=== PATIENT | female | born 1945 | race Caucasian/White ===

== ENCOUNTER 2018-03-24 09:44 | Observation (INO) | payer MEDICARE ==
[2018-03-24] VITALS (10 sets, daily range): BP systolic 112–175; BP diastolic 66–87; PULSE 62–85; RESP 18–20; TEMP 96.2–98.3; O2SAT 91–99
[~2018-03-24] VITALS: Ht 162.6 cm; Wt 87.5 kg
[~2018-03-24 09:44] MED LIST: ASPI81 PO; ATOR10TA PO; BUPR150T5 PO; ISOS30 PO; MELA5 PO; METO25 PO; NAPR220T95 PO; NITR0.4S SL; PLAV75TA29 PO; TIZA2TAB PO; ZEGE20CA4 PO; [UNRECOGNIZED DRUG - OTHER]
--- NOTE | 2018-03-24 09:53 | PD ---
HPI Chief Complaint: Chest Pain Time Seen by Provider: 09:53 Travel History International Travel<30 days: No Contact w/Intl Traveler<30days: No Traveled to known affect area: No History of Present Illness HPI 72-year-old female came to the emergency room brought by EMS for sudden onset chest pain about half an hour prior to arrival. Patient has history of coronary artery disease and has stent. Her last stent was year and a half ago. Patient had her own nitro and took the nitro 2 every 5 minutes and at that point her pain started to ease. Initially the pain was 10 out of 10 and currently is 4 out of 10. This is a dull pain that she said started in the substernal area and then radiated all over the chest and to her left shoulder. She started feeling dizzy but did not have a syncopal episode. Vital signs were stable upon arrival. Currently patient is awake and answering questions appropriately. She is taking her Plavix every day. Patient continues to be a smoker. Patient was concerned that she was having another heart attack. [facility] Past Medical History Narrative Medical List of her past medical, surgical, social and family history is reviewed from the nursing note Cancer: Yes Cardiovascular Problems: No Chest Pain: Yes Diabetes: Yes Endocrine: No Gastrointestinal Disorders: Yes (Colitis+) Glaucoma: No Genitourinary: No Hepatitis: No Hiatal Hernia: No Hypertension: Yes Immune Disorder: No Musculoskeletal: Yes Neurologic: No (Brain Hemorrhage) Reproductive: Yes (Cancer) Respiratory: No Integumentary: No Thyroid Disease: No ?: Not Past Surgical History Gynecologic Surgery: Yes (Hysterectomy, ovary removal) Thoracic Surgery: Yes Social History Alcohol Use: Yes (OCC) Tobacco Use: Yes (1PPD) Substance Use: No Allergies-Medications (Allergen,Severity, Reaction): Coded Allergies: No Known Allergies (Unverified Allergy, Unknown, 03/24/18) Comments No known drug allergies. Reported Meds & Prescriptions Reported Meds & Active Scripts Active Tizanidine (Tizanidine HCl) 2 Mg Tab 2 Mg PO TID Reported Isosorbide Mononitrate ER (Isosorbide Mononitrate) 60 Mg Tab 60 Mg PO DAILY Metoprolol Tartrate 25 Mg Tab 25 Mg PO BID Nitrostat SL (Nitroglycerin) 0.4 Mg Subl 0.4 Mg SL DIRECTED PRN 1 tablet under the tongue as needed for chest pain. Repeat every 5 minutes for a total of 3 DOSES or call 911 if NO relief. Atorvastatin (Atorvastatin Calcium) 10 Mg Tab 10 Mg PO DAILY Aspirin Low Dose (Aspirin) 81 Mg Chew 81 Mg CHEW DAILY Zegerid (Omeprazole-Sodium Bicarbonate) 20-1,100 Mg Cap 1 Cap PO DAILY Plavix (Clopidogrel Bisulfate) 75 Mg Tab 75 Mg PO DAILY Narrative Medication List of her home medications reviewed from the nursing note. Review of Systems Except as stated in HPI: all other systems reviewed are Neg Cardiovascular: Positive: Chest Pain or Discomfort Physical Exam Narrative GENERAL: Awake, alert, anxious, moderate distress SKIN: Focused skin assessment warm/dry. HEAD: Atraumatic. Normocephalic. EYES: Pupils equal and round. No scleral icterus. No injection or drainage. ENT: No nasal bleeding or discharge. Mucous membranes pink and moist. NECK: Trachea midline. No JVD. CARDIOVASCULAR: Regular rate and rhythm. No murmur appreciated. RESPIRATORY: No accessory muscle use. Clear to auscultation. Breath sounds equal bilaterally. GASTROINTESTINAL: Abdomen soft, non-tender, nondistended. Hepatic and splenic margins not palpable. MUSCULOSKELETAL: No obvious deformities. No clubbing. No cyanosis. No edema. NEUROLOGICAL: Awake and alert. No obvious cranial nerve deficits. Motor grossly within normal limits. Normal speech. PSYCHIATRIC: Appropriate mood and affect; insight and judgment normal. Data Data Last Documented VS Vital Signs Date Time Temp Pulse Resp B/P (MAP) Pulse Ox O2 Delivery O2 Flow Rate FiO2 03/24/18 10:43 68 18 112/68 (83) 96 Nasal Cannula 2.00 03/24/18 09:48 98.3 Orders Orders Electrocardiogram (03/24/18 09:59) Basic Metabolic Panel (Bmp) (03/24/18 09:59) Ckmb (Isoenzyme) Profile (03/24/18 09:59) Complete Blood Count With Diff (03/24/18 09:59) Magnesium (Mg) (03/24/18 09:59) Prothrombin Time / Inr (Pt) (03/24/18 09:59) Act Partial Throm Time (Ptt) (03/24/18 09:59) Troponin I (03/24/18 09:59) Ecg Monitoring (03/24/18 09:59) Bilateral Bp Monitoring (03/24/18 09:59) Iv Access Insert/Monitor (03/24/18 09:59) Oximetry (03/24/18 09:59) Oxygen Administration (03/24/18 09:59) Sodium Chloride 0.9% Flush (Ns Flush) (03/24/18 10:00) Chest, Pa & Lat (03/24/18 09:59) Nitroglycerin 2% Oint (Nitroglycerin 2% (03/24/18 10:00) Admit Order (Ed Use Only) (03/24/18 11:35) Labs Laboratory Tests Test 03/24/18 09:58 White Blood Count 6.6 TH/MM3 Red Blood Count 4.75 MIL/MM3 Hemoglobin 14.7 GM/DL Hematocrit 43.6 % Mean Corpuscular Volume 91.8 FL Mean Corpuscular Hemoglobin 30.9 PG Mean Corpuscular Hemoglobin Concent 33.6 % Red Cell Distribution Width 13.5 % Platelet Count 257 TH/MM3 Mean Platelet Volume 8.9 FL Neutrophils (%) (Auto) 60.1 % Lymphocytes (%) (Auto) 28.3 % Monocytes (%) (Auto) 8.3 % Eosinophils (%) (Auto) 1.7 % Basophils (%) (Auto) 1.6 % Neutrophils # (Auto) 4.0 TH/MM3 Lymphocytes # (Auto) 1.9 TH/MM3 Monocytes # (Auto) 0.5 TH/MM3 Eosinophils # (Auto) 0.1 TH/MM3 Basophils # (Auto) 0.1 TH/MM3 CBC Comment DIFF FINAL Differential Comment Prothrombin Time 10.1 SEC Prothromb Time International Ratio 1.0 RATIO Activated Partial Thromboplast Time 28.4 SEC Blood Urea Nitrogen 19 MG/DL Creatinine 0.88 MG/DL Random Glucose 115 MG/DL Calcium Level 8.9 MG/DL Magnesium Level 2.3 MG/DL Sodium Level 142 MEQ/L Potassium Level 3.8 MEQ/L Chloride Level 108 MEQ/L Carbon Dioxide Level 24.3 MEQ/L Anion Gap 10 MEQ/L Estimat Glomerular Filtration Rate 63 ML/MIN Total Creatine Kinase 55 U/L Troponin I LESS THAN 0.02 NG/ML Exceptions Acute Myocardial Infarction ASA Not Given on Arrival: Already Given by EMS MDM Medical Decision Making Medical Screen Exam Complete: Yes Emergency Medical Condition: Yes Medical Record Reviewed: Yes Interpretation(s) Twelve-lead EKG was reviewed by me. Normal sinus rhythm, normal axis, nonspecific ST-T wave changes. Heart rate of 85 bpm. Differential Diagnosis ACS, non-STEMI, nonspecific chest pain Narrative Course 11:23 AM blood test results are back and within normal limits. I would like to admit this patient for chest pain, rule out ACS given her significant past coronary artery disease history. Patient was put on 2 inch Nitropaste. Awaiting for the hospitalist to call back Procedures EKG Prior to Arrival: No Diagnosis Primary Impression: Chest pain Qualified Codes: R07.9 - Chest pain, unspecified Admitting Information Admitting Physician Requests: Observation Xavier Poon MD Mar 24, 2018 09:53
[2018-03-24] MEDS ORDERED: NITR0.4S SL (09:54)
[2018-03-24] MEDS ORDERED: ASPI81CH6 CHEW (09:54)
[2018-03-24] MEDS ORDERED: ATOR10TA15 PO (09:54)
[2018-03-24] MEDS ORDERED: NITROGLYCERIN 2% OINT 1 GM PACKET TOPICAL ONE (10:00)
[2018-03-24] MEDS ORDERED: SODIUM CHLORIDE 0.9% FLUSH 10 ML FLUSH IVF PRN (10:00)
[2018-03-24] MEDS ORDERED: METO25TA3 PO (10:02)
[2018-03-24] MEDS ORDERED: ISOS60TA PO (10:02)
[2018-03-24 10:27] LABS: BASOPHIL # 0.1 TH/MM3 (0-0.2); BASOPHIL % 1.6 % (0.0-2.0); EOSINOPHIL # 0.1 TH/MM3 (0-0.4); EOSINOPHIL % 1.7 % (0.0-4.0); HEMATOCRIT 43.6 % (35.0-46.0); HEMOGLOBIN 14.7 GM/DL (11.6-15.3); LYMPH % 28.3 % (9.0-44.0); LYMPHOCYTE # 1.9 TH/MM3 (1.0-4.8); MEAN CELL VOLUME 91.8 FL (80.0-100.0); MEAN CORPUSCULAR HEMOGLOBIN 30.9 PG (27.0-34.0); MEAN CORPUSCULAR HGB CONC 33.6 % (32.0-36.0); MEAN PLATELET VOLUME 8.9 FL (7.0-11.0); MONO % 8.3 % (0.0-8.0); MONOCYTE # 0.5 TH/MM3 (0-0.9); NEUT % 60.1 % (16.0-70.0); PLATELET COUNT 257 TH/MM3 (150-450); RED BLOOD COUNT 4.75 MIL/MM3 (4.00-5.30); RED CELL DISTRIBUTION WIDTH 13.5 % (11.6-17.2); WHITE BLOOD COUNT 6.6 TH/MM3 (4.0-11.0)
[2018-03-24 10:34] LABS: CHLORIDE 108 MEQ/L (98-107); SODIUM (NA) 142 MEQ/L (136-145)
[2018-03-24 10:37] LABS: CALCIUM 8.9 MG/DL (8.5-10.1)
[2018-03-24 10:38] LABS: BICARBONATE 24.3 MEQ/L (21.0-32.0); BLOOD UREA NITROGEN 19 MG/DL (7-18); GLUCOSE,RANDOM 115 MG/DL (74-106); MAGNESIUM 2.3 MG/DL (1.5-2.5)
[2018-03-24 10:39] LABS: PROTHROMBIN TIME - PATIENT 10.1 SEC (9.8-11.6)
[2018-03-24 10:41] LABS: CREATININE 0.88 MG/DL (0.50-1.00); GLOMERULAR FILTRATION RATE 63 ML/MIN (>89)
[2018-03-24 10:46] LABS: TROPONIN I LESS THAN 0.02 NG/ML (0.02-0.05)
--- NOTE | 2018-03-24 11:27 | RADRPT ---
EXAM DATE: 03/24/2018 11:18 AM EDT AGE/SEX: 72 years / Female INDICATIONS: Chest pain CLINICAL DATA: This is the patient's initial encounter. Patient reports that signs and symptoms have been present for 1 day and indicates a pain score of 9/10. MEDICAL/SURGICAL HISTORY: . Heart attack . Cardiac stent COMPARISON: [facility] [place], CHEST SINGLE AP, 02/10/2016. . FINDINGS: Frontal and lateral views of the chest demonstrate a normal-sized cardiac silhouette. No pleural effu lalit, airspace consolidation, or pneumothorax is identified. There is likely a mild degree of atelect asis at the lung bases. There is biapical pleural parenchymal scar, stable from the prior study. The bones and soft tissues demonstrate no acute abnormality. CONCLUSION: No acute cardiopulmonary abnormality is identified. Electronically signed by: Vikram Rudolph MD 03/24/2018 11:26 AM EDT
[2018-03-24] MEDS ORDERED: SODIUM CHLORIDE 0.9% FLUSH 10 ML FLUSH IV FLUSH PRN (11:45)
[2018-03-24] MEDS: NITROGLYCERIN 2% OINT 1 GM PACKET TOP SCH ×2 (11:59→17:53)
--- NOTE | 2018-03-24 12:08 | HHI.HP ---
[facility] Primary [facility] Physician Unknown Admission Diagnosis Chest pain, rule out ACS Diagnoses: Chief Complaint: Chest pain Travel History International Travel<30 Days: No Contact w/Intl Traveler <30 Da: No Traveled to Known Affected Are: No History of Present Illness This patient is a 72-year-old female with a history of coronary disease. She appears quite younger than stated age and is otherwise very healthy despite her year tobacco history. She comes emergency room with 1 day severe chest pain, crushing and radiating to the left shoulder. Occurred at rest and relieved with nitroglycerin. She describes it as "an explosion in her chest ". There is no nausea or vomiting or diaphoresis. She did not have any palpitations or lightheadedness. Her cardiac enzymes and imaging have been unremarkable EKG is sinus rhythm. At this point patient is admitted to the chest pain center for further evaluation. I did discuss this briefly with her road builder who agreed with the current plan of action. Patient is currently without complaint. Review of Systems Constitutional: DENIES: Diaphoretic episodes, Fatigue, Fever, Weight gain, Weight loss, Chills, Dizziness, Change in appetite, Night Sweats Endocrine: DENIES: Abnorml menstrual pattern, Heat/cold intolerance, Polydipsia , Polyuria, Polyphagia Eyes: DENIES: Blurred vision, Diplopia, Eye inflammation, Eye pain, Vision loss , Photosensitivity, Double Vision Ears, nose, mouth, throat: DENIES: Tinnitus, Hearing loss, Vertigo, Nasal discharge, Oral lesions, Throat pain, Hoarseness, Ear Pain, Running Nose, Epistaxis, Sinus Pain, Toothache, Odynophagia Respiratory: DENIES: Apneas, Cough, Snoring, Wheezing, Hemoptysis, Sputum production, Shortness of breath Cardiovascular: COMPLAINS OF: Chest pain, DENIES: Palpitations, Syncope, Dyspnea on Exertion, PND, Lower Extremity Edema, Orthopnea, Claudication Gastrointestinal: DENIES: Abdominal pain, Black stools, Bloody stools, Constipation, Diarrhea, Nausea, Vomiting, Difficulty Swallowing, Anorexia Genitourinary: DENIES: Abnormal vaginal bleeding, Dysmenorrhea, Dyspareunia, Sexual dysfunction, Urinary frequency, Urinary incontinence, Urgency, Hematuria , Dysuria, Nocturia, Vaginal discharge Musculoskeletal: DENIES: Joint pain, Muscle aches, Stiffness, Joint Swelling, Back pain, Neck pain Integumentary: DENIES: Abnormal pigmentation, Pruritus, Rash, Nail changes, Breast masses, Breast skin changes, Nipple discharge Hematologic/lymphatic: DENIES: Bruising, Lymphadenopathy Immunologic/allergic: DENIES: Eczema, Urticaria Neurologic: DENIES: Abnormal gait, Headache, Localized weakness, Paresthesias, Seizures, Speech Problems, Tremor, Poor Balance Psychiatric: DENIES: Anxiety, Confusion, Mood changes, Depression, Hallucinations, Agitation, Suicidal Ideation, Homicidal Ideation, Delusions Except as stated in HPI: all other systems reviewed are Neg Past Family Social History Past Medical History Coronary artery disease with stenting Eye surgery Past Surgical History Eye surgery Hysterectomy Cardiac cath 09/2018 per patient, (last catheterization in our records 2014) Tonsillectomy Dental extraction Reported Medications Reviewed in the EMR, nothing new Allergies: Coded Allergies: No Known Allergies (Unverified Allergy, Unknown, 03/24/18) Active Ordered Medications Reviewed in the EMR Family History Mother at 93 with dementia, father of sudden cardiac in his 50s Social History No alcohol dependency Patient smokes a half pack a day at least and has 100 pack year history Physical Exam Vital Signs Vital Signs Date Time Temp Pulse Resp B/P (MAP) Pulse Ox O2 Delivery O2 Flow Rate FiO2 03/24/18 10:43 68 18 112/68 (83) 96 Nasal Cannula 2.00 03/24/18 10:06 96 Nasal Cannula 2.00 03/24/18 10:05 73 18 134/75 (94) 96 2.00 03/24/18 10:00 91 Room Air 03/24/18 09:56 78 03/24/18 09:48 98.3 85 18 150/87 (108) 97 Physical Exam GENERAL: This is a well-nourished, well-developed patient, in no apparent distress. SKIN: No rashes, ecchymoses or lesions. Cool and dry. HEAD: Atraumatic. Normocephalic. No temporal or scalp tenderness. EYES: Pupils equal round and reactive. Extraocular motions intact. No scleral icterus. No injection or drainage. ENT: Nose without bleeding, purulent drainage or septal hematoma. Throat without erythema, tonsillar hypertrophy or exudate. Uvula midline. Airway patent. NECK: Trachea midline. No JVD or lymphadenopathy. Supple, nontender, no meningeal signs. CARDIOVASCULAR: Regular rate and rhythm without murmurs, gallops, or rubs. RESPIRATORY: Clear to auscultation. Breath sounds equal bilaterally. No wheezes , rales, or rhonchi. GASTROINTESTINAL: Abdomen soft, non-tender, nondistended. No hepato-splenomegaly , or palpable masses. No guarding. MUSCULOSKELETAL: Extremities without clubbing, cyanosis, or edema. No joint tenderness, effusion, or edema noted. No calf tenderness. Negative Homans sign bilaterally. NEUROLOGICAL: Awake and alert. Cranial nerves II through XII intact. Motor and sensory grossly within normal limits. Five out of 5 muscle strength in all muscle groups. Normal speech. Laboratory Laboratory Tests Test 03/24/18 09:58 White Blood Count 6.6 Red Blood Count 4.75 Hemoglobin 14.7 Hematocrit 43.6 Mean Corpuscular Volume 91.8 Mean Corpuscular Hemoglobin 30.9 Mean Corpuscular Hemoglobin Concent 33.6 Red Cell Distribution Width 13.5 Platelet Count 257 Mean Platelet Volume 8.9 Neutrophils (%) (Auto) 60.1 Lymphocytes (%) (Auto) 28.3 Monocytes (%) (Auto) 8.3 Eosinophils (%) (Auto) 1.7 Basophils (%) (Auto) 1.6 Neutrophils # (Auto) 4.0 Lymphocytes # (Auto) 1.9 Monocytes # (Auto) 0.5 Eosinophils # (Auto) 0.1 Basophils # (Auto) 0.1 CBC Comment DIFF FINAL Differential Comment Prothrombin Time 10.1 Prothromb Time International Ratio 1.0 Activated Partial Thromboplast Time 28.4 Blood Urea Nitrogen 19 Creatinine 0.88 Random Glucose 115 Calcium Level 8.9 Magnesium Level 2.3 Sodium Level 142 Potassium Level 3.8 Chloride Level 108 Carbon Dioxide Level 24.3 Anion Gap 10 Estimat Glomerular Filtration Rate 63 Total Creatine Kinase 55 Troponin I LESS THAN 0.02 Result Diagram: 03/24/1858 03/24/18 0958 Assessment and Plan Problem List: (1) Chest pain ICD Code: R07.9 - Chest pain, unspecified Plan: Worrisome to the patient's known coronary disease Discussed with cardiology Dr. minor Continue telemetry Follow-up cardiac enzymes, stress test pending Morphine, oxygen, nitro, aspirin Discussed with ER MD and PULLEY MORTISER OPERATOR (2) Hypertension ICD Code: I10 - Essential (primary) hypertension Status: Acute Plan: Currently controlled Kiara Vega MD Mar 24, 2018 12:08
[2018-03-24] MEDS ORDERED: MORPHINE SULFATE 4 MG/ML INJ IV PUSH PRN (12:15)
[2018-03-24 15:45] LABS: TROPONIN I LESS THAN 0.02 NG/ML (0.02-0.05)
[2018-03-24 16:36] LABS: TROPONIN I LESS THAN 0.02 NG/ML (0.02-0.05)
[2018-03-24] MEDS ORDERED: REGADENOSON INJ 0.4 MG/5 ML SYR IV ONE (17:36)
--- NOTE | 2018-03-24 18:55 | RADRPT ---
EXAM DATE: 03/24/2018 6:51 PM EDT AGE/SEX: 72 years / Female INDICATIONS:Angina. . Chest pain. CLINICAL DATA: This is the patient's initial encounter. Patient reports that signs and symptoms have been present for 1 day and indicates a pain score of 0/10. MEDICAL/SURGICAL HISTORY: Cardiovascular disease. Hypertension. Hysterectomy. Angioplasty. COMPARISON: No prior exams available for comparison. DOSE: 8.5 mCi Tc 99m Myoview at rest 27.3 mCi [id number] at stress 0.4 mg Lexiscan STRESS SYMPTOMS: Headache, dyspnea, and chest pain. EJECTION FRACTION: 60 % TECHNIQUE: The patient underwent pharmacologic stress with infusion of prescribed dose. Continuous ECG tracing was monitored during stress. Gated SPECT imaging was performed after stress and conventi onal SPECT imaging was performed at rest. The examination was performed on a SPECT/CT scanner, both attenuation and non-corrected datasets were reviewed. FINDINGS: Distribution: The maximum perfused segment at stress is in the anterior wall. Perfusion Study: The pattern of perfusion at stress is within normal limits with regional variation s perfusion within 25%. The pattern of perfusion at stress and rest is unchanged and there is no evid ence of redistribution.. Gated Study: There are intact wall motion and wall thickening without hypokinetic or dyskinetic segm ents. The ejection fraction is calculated at 60%. RISK CATEGORY: Low (<1% Annual Motality Rate) CONCLUSION: 1. No evidence of stress-induced ischemia. 2. Intact wall motion with 60% ejection fraction. Electronically signed by: Rakesh Rick MD 03/24/2018 6:53 PM EDT
--- NOTE | 2018-03-24 19:03 | HHI.DCPOC ---
Discharge Care Plan Diagnosis: (1) Chest pain Goals to Promote Your Health * To prevent worsening of your condition and complications * To maintain your health at the optimal level Directions to Meet Your Goals Take your medications as prescribed Follow your dietary instruction Follow activity as directed Keep your appointments as scheduled Take your immunizations and boosters as scheduled If your symptoms worsen call your PCP, if no PCP go to Urgent Care Center or Emergency Room Smoking is Dangerous to Your Health. Avoid second hand smoke Call the 24-hour hour crisis hotline for domestic abuse at Kiara Vega MD Mar 24, 2018 19:03
[2018-03-24] MEDS ORDERED: SODIUM CHLORIDE 0.9% FLUSH 10 ML FLUSH IV FLUSH SCH (21:00)
--- NOTE | 2018-03-25 15:38 | TR ---
Date Performed: 03/24/2018 Time Performed: 18:03:17 DOCTOR: Ajit Wellington DRUG LIST: CLINICAL HISTORY: REASON FOR TEST: REASON FOR ENDING: OBSERVATION: CONCLUSION: COMMENTS: Lexiscan stress test was performed under standard four minute protocol. Radionuclide was injected one minute prior to ending the test. No electrocardiographic abormalities were present t o suggest ischemia. Nuclear imaging and interpretation are pending.
--- NOTE | 2018-03-25 23:11 | EKG ---
Date Performed: 03/24/2018 Time Performed: 15:30:01 PTAGE: 72 years EKG: Sinus rhythm NORMAL ECG PREVIOUS TRACING : 03/24/2018 14.09 DOCTOR: Rosahn Deng Interpretating Date/Time 03/25/2018 23:00:26
--- NOTE | 2018-03-25 23:13 | EKG ---
Date Performed: 03/24/2018 Time Performed: 14:09:16 PTAGE: 72 years EKG: Sinus rhythm NORMAL ECG PREVIOUS TRACING : 03/24/2018 09.49 DOCTOR: Roshan Deng Interpretating Date/Time 03/25/2018 23:01:34
--- NOTE | 2018-03-25 23:20 | EKG ---
Date Performed: 03/24/2018 Time Performed: 09:49:05 PTAGE: 72 years EKG: Sinus rhythm NORMAL ECG PREVIOUS TRACING : 03/01/2016 05.30 DOCTOR: Roshan Deng Interpretating Date/Time 03/25/2018 23:06:08
[2018-03-26] MEDS ORDERED: ASPIRIN 325 MG TAB PO SCH (09:00)
== END 2018-03-24 19:56 | disposition home or self-care (01) ==
LOC: PHED 09:44 → PHEDA 11:36 → PH3B 12:33
PROVIDERS: ADMIT Hospitalist; ATTEND Hospitalist
DX: R07.9 Chest pain, unspecified (principal); I25.10 Atherosclerotic heart disease of native coronary artery without angina pectoris; R42 Dizziness and giddiness; E11.9 Type 2 diabetes mellitus without complications; I10 Essential (primary) hypertension; F17.210 Nicotine dependence, cigarettes, uncomplicated; Z95.5 Presence of coronary angioplasty implant and graft; Z90.710 Acquired absence of both cervix and uterus
CPT/HCPCS: 71046; 78452; 80048; 82550; 83735; 84484; 85025; 85610; 85730; 93005; 93017; 99285; A9502; G0378; J2785

== ENCOUNTER 2018-09-18 13:53 | Inpatient (IN) ==
[2018-09-18] MEDS ORDERED: Sod Chloride 0.9% Inj 1,000 ML IV.SIG ONE (14:56)
[2018-09-18] MEDS ORDERED: Morphine Inj 4 MG/ML Vial IV.PUSH ONE (14:56)
[2018-09-18] MEDS ORDERED: Piperacil/Tazo 3.375 GM Premix 50 ML IV.SIG ONE (14:56)
[2018-09-18 15:13] LABS: Baso # (Auto) 0.1 th/mm3 (0.0-0.2); Baso % (Auto) 0.8 % (0.0-2.0); Eos # (Auto) 0.1 th/mm3 (0.0-0.4); Eos % (Auto) 1.9 % (0.0-4.0); Hematocrit 41.8 % (35.0-46.0); Hemoglobin 14.2 gm/dL (11.6-15.3); Lymph # (Auto) 1.9 th/mm3 (1.0-4.8); Lymph % (Auto) 23.7 % (9.0-44.0); Mean Corpuscular Hemoglobin 31.4 pg (27.0-34.0); Mean Corpuscular Volume 92.4 fL (80.0-100.0); Mean Platelet Volume 8.4 fL (7.0-11.0); Mono # (Auto) 0.6 th/mm3 (0.0-0.9); Mono % (Auto) 7.8 % (0.0-8.0); Neut # (Auto) 5.2 th/mm3 (1.8-7.7); Neut % (Auto) 65.8 % (16.0-70.0); Platelet Count 278 th/mm3 (150-450); Red Blood Count 4.52 mil/mm3 (4.00-5.30); Red Cell Distribution Width 14.7 % (11.6-17.2); White Blood Count 7.8 th/mm3 (4.0-11.0)
--- NOTE | 2018-09-18 15:13 | ED ---
HPI General Chief Complaint: Abdominal Pain Stated Complaint: sent by doctor/medical Time Seen by Provider: 09/18/18 14:46 Source: patient and family Mode of arrival: ambulatory Limitations: no limitations History of Present Illness HPI narrative: Ms Spicer is a 72 year old female who presents to the ED for evaluation of abdominal pain and a CT that showed findings consistent with cholecystitis. The patient saw a provider at [facility] yesterday who was suspicious of cholecystitis and they did blood work and sent her for a CT scan. The patient states she has had abdominal pain in the RUQ for approximately 1 week that is constant but waxes and wanes in intensity. The pain is a 5/10 today but has been a 10/10 in the las few days. She states she feels bloated and nauseous but denies chest pain, vomiting, SOB, jaundice, or syncope. Her last meal was at 1pm today and was a sandwich and a soda. 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 She does take Plavix and she took all her regular medications this morning. The patient smokes 1/2 pack of cigarettes per day, drinks alcohol once per week, and denies drug use. Related Data Home Medications Medication Instructions Recorded Confirmed atorvastatin 10 mg PO DAILY 09/18/18 09/18/18 clopidogrel [Plavix] 75 mg PO DAILY 09/18/18 09/18/18 hydrocodone-acetaminophen 1 tab PO Q6H PRN 09/18/18 09/18/18 isosorbide mononitrate 60 mg PO DAILY 09/18/18 09/18/18 metoprolol tartrate 25 mg PO DAILY 09/18/18 09/18/18 omeprazole-sodium bicarbonate 1 cap PO DAILY 09/18/18 09/18/18 [Zegerid OTC] ropinirole 1 mg PO TID 09/18/18 09/18/18 Allergies Allergy/AdvReac Type Severity Reaction Status Date / Time No Known Allergies Allergy Verified 09/18/18 14:31 Review of Systems ROS: all other systems reviewed are negative [facility] Medical History Medical History Cataract (Acute) H/O: hysterectomy (Acute) HTN (hypertension) (Acute) Ovarian tumor (benign) (Acute) Surgical History Surgical History Hx of heart artery stent (Acute) Family History Family History Other Coronary artery disease Social History Social History Substance History: No History of Abuse Second Hand Smoke Exposure: Yes Smoking Status: Current every day smoker Tobacco Type: Cigarettes How Often Do You Have a Drink Containing Alcohol: 2 to 4 times a month Recent Travel in [facility] within the Last 8 Weeks: No Recent Out of Country Travel within the Last 8 Weeks: No Immunization History Tetanus Immunization: Unsure Exam Narrative Exam Narrative: GENERAL: Well developed well nourished female who appears mildly uncomfortable. SKIN: Warm and dry. HEAD: Atraumatic. Normocephalic. EYES: Pupils equal and round and reactive to light. No scleral icterus. No injection or drainage. ENT: No nasal bleeding or discharge. Mild nasal congestion present. Mucous membranes pink and moist. NECK: Trachea midline. No JVD. CARDIOVASCULAR: Regular rate and rhythm. No murmurs rubs or gallops. RESPIRATORY: No accessory muscle use. Clear to auscultation. Breath sounds equal bilaterally. GASTROINTESTINAL: Abdomen soft and nondistended. Pain with palpation of the RUQ. Positive Sanon's sign. Hepatic and splenic margins not palpable. MUSCULOSKELETAL: Extremities without clubbing, cyanosis, or edema. No obvious deformities. Full ROM in the upper and lower extremities bilaterally. 2+ pulses in the upper and lower extremities bilaterally. NEUROLOGICAL: Awake and alert. No obvious cranial nerve deficits. Motor grossly within normal limits. Five out of 5 muscle strength in the arms and legs. Normal speech. PSYCHIATRIC: Appropriate mood and affect; insight and judgment normal. Course Initial Documented Vital Signs Temperature 97.7 F 09/18/18 14:18 Pulse Rate 88 09/18/18 14:18 Respiratory Rate 14 09/18/18 14:18 Blood Pressure 174/79 H 09/18/18 14:18 Pulse Oximetry 97 09/18/18 14:18 Last Documented Vital Signs Temperature 97.6 F 09/18/18 20:00 Pulse Rate 77 09/18/18 20:00 Respiratory Rate 20 09/18/18 20:00 Blood Pressure 161/79 H 09/18/18 20:00 Pulse Oximetry 95 09/18/18 20:00 Medical Decision Making PEBBLES Attestation PEBBLES supervised visit: Yes Attestation: I, Dr. Eng, have reviewed the advance practice practitioner's documentation and am in agreement, met with the patient face to face, made the diagnosis, and the medical decision making was done by me. *My assessment and Findings: Patient is a 72-year-old female who presents with complaint of right upper quadrant abdominal pain. She had a CT done at an outside facility that was concerning for acute cholecystitis. She has been hemodynamically stable in the emergency department and was given Zosyn. Her case was discussed with the surgeon and the admitting physician with whom she will have further evaluation and management. MDM Narrative Medical decision making narrative: 72-year-old female who presents to the ED for evaluation of cholecystitis. Patient was properly examined and was found to have signs and symptoms consistent with this. Was able to get the records from [facility] and she did have CT findings consistent with gallbladder disease including cholecystitis. Case was discussed with my attending who recommends I speak with general surgery. Labs were done. We were able to get the records from the urgent care who sent the blood work and blood work did not show anything acute. At this time patient will be admitted to medicine. Case discussed with Dr. Crockett who states at this time no plans for surgery at least for the next 24 hours as patient did eat at 1:00 and is on Plavix. Liquid diet if patient can tolerate per his recommendation. At this time he recommends starting on. At this time she seems to be hopeful with just medical treatment may patient might not need surgery. He will assess her as she is admitted to the hospital. Case discussed with Dr. Carter who agrees to admission. Patient and family agree with plan. Patient was started on IV antibiotics as well as pain medications by me. Medical Screen Exam Complete: Yes Emergency Medical Condition: Yes Medical Records Medical records reviewed: Yes I reviewed the patient's medical records. Lab Data Lab results reviewed: Yes I reviewed the patient's lab results. Result diagrams: 09/18/18 15:00 09/18/18 15:00 Lab Results 09/18/18 09/18/18 09/18/18 Range/Units 15:00 15:00 15:00 WBC 7.8 (4.0-11.0) th/mm3 RBC 4.52 (4.00-5.30) mil/mm3 Hgb 14.2 (11.6-15.3) gm/dL Hct 41.8 (35.0-46.0) % MCV 92.4 (80.0-100.0) fL MCH 31.4 (27.0-34.0) pg MCHC 34.0 (32.0-36.0) % RDW 14.7 (11.6-17.2) % Plt Count 278 (150-450) th/mm3 MPV 8.4 (7.0-11.0) fL Neut % (Auto) 65.8 (16.0-70.0) % Lymph % (Auto) 23.7 (9.0-44.0) % [place] % (Auto) 7.8 (0.0-8.0) % Eos % (Auto) 1.9 (0.0-4.0) % Baso % (Auto) 0.8 (0.0-2.0) % Neut # (Auto) 5.2 (1.8-7.7) th/mm3 Lymph # (Auto) 1.9 (1.0-4.8) th/mm3 [place] # (Auto) 0.6 (0.0-0.9) th/mm3 Eos # (Auto) 0.1 (0.0-0.4) th/mm3 Baso # (Auto) 0.1 (0.0-0.2) th/mm3 WBC Differential . Differential Comment Auto diff final PT 9.7 L (9.8-11.6) sec INR 1.0 Ratio APTT 31.0 (23.4-31.7) sec Sodium 138 (136-145) meq/L Potassium 3.9 (3.5-5.1) meq/L Chloride 107 (98-107) meq/L Carbon Dioxide 26.0 (21.0-32.0) meq/L Anion Gap 5 (5-15) meq/L BUN 15 (7-18) mg/dL Creatinine 0.92 (0.50-1.00) mg/dL Estimated GFR 60 L (>89) mL/min Random Glucose 106 (74-106) mg/dL Calcium 8.4 L (8.5-10.1) mg/dL Magnesium 2.4 (1.5-2.5) mg/dL Total Bilirubin 0.2 (0.2-1.0) mg/dL AST 22 (15-37) U/L ALT 32 (10-53) U/L Alkaline Phosphatase 104 (45-117) U/L Total Protein 7.1 (6.4-8.2) g/dL Albumin 3.2 L (3.4-5.0) g/dL Lipase 172 (73-393) U/L Imaging Data Attestation: I personally reviewed and interpreted this imaging study as follows : Radiologist's impression: Chest X-Ray 09/18/18 14:56 CONCLUSION: 2.1 cm mass in the right hilar region. Further evaluation with contrast- enhanced chest CT is recommended. Discharge Plan Discharge Disposition Patient Disposition: ED Admit(ED Internal Use Only) Discharge Order Discharge Orders: ED Use Only Admit Order (Routine); Ordered 09/18/18 Ordered By: Rudy Keith Discharge Details Diagnosis: Acute cholecystitis Physicians Team ED Provider: Doris Eng ED Midlevel Provider: Rudy Keith Primary Care Provider: Primary Care Mauricei,Judi Attending Provider: Yves Carter Other Providers: Lc Crockett Status ED Status: Left Department Discharge Information Discharge Date/Time: 09/18/18 19:15
--- NOTE | 2018-09-18 15:22 | XR ---
EXAM DATE: 09/18/2018 3:16 PM EST AGE/SEX: 72 years / Female INDICATIONS: Chest pain. CLINICAL DATA: This is the patient's initial encounter. Patient reports that signs and symptoms have been present for 1 day and indicates a pain score of 3/10. MEDICAL/SURGICAL HISTORY: . Cardiovascular disease. Hypertension. . Hysterectomy. Angioplasty . COMPARISON: POI, CT ABDOMEN AND PELVIS W/ CONTRAST, 09/18/2018. . FINDINGS: A single AP view of the chest demonstrates the lungs to be symmetrically aerated without evidence of focal infiltrate or effusion. There is an oval masslike structure in the right hilar region measuring up to 2.1 cm. The cardiomediastinal contours are unremarkable. Osseous structures are intact. CONCLUSION: 2.1 cm mass in the right hilar region. Further evaluation with contrast-enhanced chest CT is recommen ded. Electronically signed by: Scotty Yu MD 09/18/2018 3:21 PM EST
[2018-09-18 15:27] LABS: Prothrombin Time 9.7 sec (9.8-11.6)
[2018-09-18 15:37] LABS: Alkaline Phosphatase 104 U/L (45-117); Total Protein 7.1 g/dL (6.4-8.2)
[2018-09-18 15:42] LABS: Alanine Aminotransferase 32 U/L (10-53); Albumin 3.2 g/dL (3.4-5.0); Anion Gap 5 meq/L (5-15); Aspartate Aminotransferase 22 U/L (15-37); Blood Urea Nitrogen 15 mg/dL (7-18); Calcium 8.4 mg/dL (8.5-10.1); Chloride 107 meq/L (98-107); Glomerular Filtration Rate 60 mL/min (>89); Glucose,Random 106 mg/dL (74-106); Lipase 172 U/L (73-393); Magnesium 2.4 mg/dL (1.5-2.5); Potassium 3.9 meq/L (3.5-5.1); Sodium 138 meq/L (136-145)
[2018-09-18] MEDS ORDERED: Naloxone Inj 0.4 MG/ML Vial IV.PUSH PRN (16:15)
[2018-09-18] MEDS ORDERED: Acetaminophen 325 MG Tablet PO PRN ×2 (16:15)
--- NOTE | 2018-09-18 16:26 | P.HP ---
History of Present Illness Primary Care Physician: No Primary Care Physician Chief Complaint: Right upper quadrant abdominal pain History of Present Illness: 72-year-old female with past medical history of hypertension, hyperlipidemia, CA , CAD and a half a pack per day tobacco use was sent to the ED after abnormal abdominal CAT scan report of an acute cholecystitis. Patient states over the past 3 days she has been having significant right upper quadrant abdominal pain , which is rated of a 9 in intensity, for which she has initially gone to an urgent care center for evaluation September 18, 2018. She was called in today of the report of an acute cholecystitis and was advised to come to the ED. She denies any febrile episode however reported decreased appetite without any significant nausea. She has no other issues. Review of Systems All other systems reviewed negative except as stated in HPI [facility] - History History Provided By: Patient - Medical History Medical History: Medical History (Last Reviewed 09/18/18 @ 16:31 by MANI Holly) Cataract H/O: hysterectomy HTN (hypertension) Ovarian tumor (benign) - Surgical History Surgical History: Surgical History (Last Reviewed 09/18/18 @ 16:31 by MANI Holly) Hx of heart artery stent - Family History Family History: Family History (Last Updated 09/18/18 @ 17:32 by Yves Carter MD) Other Coronary artery disease - Tobacco History Tobacco Use In Past 30 Days: Yes Smoking Status: Current every day smoker Tobacco Type: Cigarettes - Alcohol History How Often Do You Have a Drink Containing Alcohol: 2 to 4 times a month - Travel History Recent Travel Out of the Country Within the Last 8 Weeks: No - Immunization History Tetanus Immunization: Unsure Medications and Allergies Active Medications: Active Medications Acetaminophen (Tylenol) 650 mg PO Q4H PRN PRN Reason: Temp > 100.4 Acetaminophen (Tylenol) 650 mg PO Q6HR PRN PRN Reason: PAIN SCALE 1 TO 2 Hydrocodone Bitart/Acetaminophen ([employer] 5/325) 1 tab PO Q4H PRN PRN Reason: PAIN SCALE 3 TO 5 Al Hydroxide/Mg Hydroxide (Milk Of Magnesia Liq) 30 ml PO Q12H PRN PRN Reason: Mild Constipation Atorvastatin Calcium (Lipitor) 10 mg PO DAILY GANESH Ciprofloxacin/Dextrose (Cipro 400 Mg/200 Ml Inj) 400 mg in 200 mls @ 200 mls/ hr IV.SIG Q12H GANESH Metronidazole/Sodium Chloride (Flagyl 500 Mg Inj) 100 mls @ 100 mls/hr IV.SIG Q8H GANESH Isosorbide Mononitrate (Imdur) 60 mg PO DAILY GANESH Metoprolol Tartrate (Lopressor) 25 mg PO DAILY GANESH Naloxone HCl (Narcan Inj) 0.4 mg IV.PUSH UNSCH PRN PRN Reason: SEE LABEL COMMENTS Ondansetron HCl (Zofran Inj) 4 mg IV.PUSH Q6H PRN PRN Reason: NAUSEA OR VOMITING Ropinirole HCl (Requip) 1 mg PO TID GANESH Sodium Chloride (Ns Flush) 2 ml IV.FLUSH BID GANESH Sodium Chloride (Ns Flush) 2 ml IV.FLUSH PRN PRN PRN Reason: FLUSH AFTER USING IV ACCESS Allergies Allergy/AdvReac Type Severity Reaction Status Date / Time No Known Allergies Allergy Verified 09/18/18 14:31 Home Medications Medication Instructions Recorded Confirmed Type atorvastatin 10 mg PO DAILY 09/18/18 09/18/18 History clopidogrel [Plavix] 75 mg PO DAILY 09/18/18 09/18/18 History hydrocodone-acetaminophen 1 tab PO Q6H PRN 09/18/18 09/18/18 History isosorbide mononitrate 60 mg PO DAILY 09/18/18 09/18/18 History metoprolol tartrate 25 mg PO DAILY 09/18/18 09/18/18 History omeprazole-sodium bicarbonate 1 cap PO DAILY 09/18/18 09/18/18 History [Zegerid OTC] ropinirole 1 mg PO TID 09/18/18 09/18/18 History Exam Vital signs: Vital Signs 09/18/18 14:18 Temperature 97.7 F Pulse Rate 88 Respiratory Rate 14 Blood Pressure 174/79 H Pulse Oximetry 97 Intake & Output 09/17/18 09/18/18 09/18/18 18:59 06:59 18:59 Weight 82.554 kg Narrative: GENERAL: NAD SKIN: Warm and dry. HEAD: Atraumatic. Normocephalic. EYES: Pupils equal and round. No scleral icterus. No injection or drainage. ENT: No nasal bleeding or discharge. Mucous membranes pink and moist. NECK: Trachea midline. No JVD. CARDIOVASCULAR: Regular rate and rhythm. RESPIRATORY: No accessory muscle use. Clear to auscultation. Breath sounds equal bilaterally. GASTROINTESTINAL: Abdomen soft, RUQ TTP, nondistended. Hepatic and splenic margins not palpable. MUSCULOSKELETAL: Extremities without clubbing, cyanosis, or edema. No obvious deformities. NEUROLOGICAL: Awake and alert. No obvious cranial nerve deficits. Motor grossly within normal limits. Five out of 5 muscle strength in the arms and legs. Normal speech. PSYCHIATRIC: Appropriate mood and affect; insight and judgment normal. Results - Labs CBC & Chem 7: 09/19/18 06:23 09/19/18 06:23 Labs: Laboratory Results - last 24 hr 09/18/18 09/18/18 09/18/18 15:00 15:00 15:00 WBC 7.8 RBC 4.52 Hgb 14.2 Hct 41.8 MCV 92.4 MCH 31.4 MCHC 34.0 RDW 14.7 Plt Count 278 MPV 8.4 Neut % (Auto) 65.8 Lymph % (Auto) 23.7 [place] % (Auto) 7.8 Eos % (Auto) 1.9 Baso % (Auto) 0.8 Neut # (Auto) 5.2 Lymph # (Auto) 1.9 [place] # (Auto) 0.6 Eos # (Auto) 0.1 Baso # (Auto) 0.1 WBC Differential . Differential Comment Auto diff final PT 9.7 L INR 1.0 APTT 31.0 Sodium 138 Potassium 3.9 Chloride 107 Carbon Dioxide 26.0 Anion Gap 5 BUN 15 Creatinine 0.92 Estimated GFR 60 L Random Glucose 106 Calcium 8.4 L Magnesium 2.4 Total Bilirubin 0.2 AST 22 ALT 32 Alkaline Phosphatase 104 Total Protein 7.1 Albumin 3.2 L Lipase 172 - Imaging Impressions Chest X-Ray 09/18/18 14:56 CONCLUSION: 2.1 cm mass in the right hilar region. Further evaluation with contrast- enhanced chest CT is recommended. Caprini VTE Risk Assessment Caprini VTE Risk Assessment: Moderate/High Risk (score >= 2) Caprini Risk Assessment Model: Point Value = 1 Point Value = 2 Point Value = 3 Point Value = 5 Age 41-60 Minor surgery BMI > 25 kg/m2 Swollen legs Varicose veins or History of unexplained or recurrent spontaneous Oral contraceptives or hormone replacement Sepsis (< 1 month) Serious lung disease, including pneumonia (< 1 month) Abnormal pulmonary function Acute myocardial infarction Congestive heart failure (< 1 month) History of inflammatory bowel disease Medical patient at bed rest Age 61-74 Arthroscopic surgery Major open surgery (> 45 min) Laparoscopic surgery (> 45 min) Malignancy Confined to bed (> 72 hours) Immobilizing plaster cast Central venous access Age >= 75 History of VTE Family history of VTE Factor V Leiden Prothrombin [id number] Lupus anticoagulant Anticardiolipin antibodies Elevated serum homocysteine Heparin-induced thrombocytopenia Other congenital or acquired thrombophilia Stroke (< 1 month) Elective arthroplasty Hip, pelvis, or leg fracture Acute spinal cord injury (< 1 month) Prophylaxis Regimen: Total Risk Factor Score Risk Level Prophylaxis Regimen 0-1 Low Early ambulation 2 Moderate Order ONE of the following: *Sequential Compression Device (SCD) *Heparin 5000 units SQ BID 3-4 Higher Order ONE of the following medications: *Heparin 5000 units SQ TID *Enoxaparin/Lovenox 40 mg SQ daily (WT < 150 kg, CrCl > 30 mL/min) *Enoxaparin/Lovenox 30 mg SQ daily (WT < 150 kg, CrCl > 10-29 mL/min) *Enoxaparin/Lovenox 30 mg SQ BID (WT < 150 kg, CrCl > 30 mL/min) AND/OR *Sequential Compression Device (SCD) 5 or more Highest Order ONE of the following medications: *Heparin 5000 units SQ TID (Preferred with Epidurals) *Enoxaparin/Lovenox 40 mg SQ daily (WT < 150 kg, CrCl > 30 mL/min) *Enoxaparin/Lovenox 30 mg SQ daily (WT < 150 kg, CrCl > 10-29 mL/min) *Enoxaparin/Lovenox 30 mg SQ BID (WT < 150 kg, CrCl > 30 mL/min) AND *Sequential Compression Device (SCD) Assessment and Plan - Plan 72 years old female with Acute cholecystitis Outside CT abdomen/pelvis noted Case was discussed with General Surgeon academic interventionist with ED PA for possible Lap chol in the next 48hours Will start Cipro and Flagyl IV Hold Plavix Start clear liquid diet Hypertension Resume BB CAD Prior history of CA Hold Plavix and resume BB, Lipitor Hyperlipidemia Resume statin 2.1 cm mass in the right hilar region per CXR Will get Chest CT for further evaluation as patient with history of tobacco abuse Tobacco abuse Tobacco counseling cessation provided Patient declined nicotine patch DVT prophylaxis: Bilateral SCDs
[2018-09-18] MEDS: Ciprofloxacin 400 MG/200 ML 400 MG/200 ML PIGGYBACK IV.SIG SCH (17:37)
[2018-09-18 22:12] LABS: Bilirubin,Urine Negative (Negative); Clarity,Urine Clear (Clear); Color,Urine Amber (Yellw/Straw); Glucose,Urine (UA) Negative (Negative); Leukocyte Esterase,Urine Trace (Negative); Nitrite,Urine Negative (Negative); Specific Gravity,Urine 1.031 (1.002-1.035); Squamous Epithelial Cell,Urine 1 /hpf (0-5)
[2018-09-19] MEDS: Isosorbide Mononitrate 60 MG ER 24HR Tablet (Imdur) PO SCH (06:14)
[2018-09-19] MEDS: Ciprofloxacin 400 MG/200 ML 400 MG/200 ML PIGGYBACK IV.SIG SCH ×2 (06:14→17:27)
[2018-09-19 07:00] LABS: Baso # (Auto) 0.1 th/mm3 (0.0-0.2); Baso % (Auto) 1.1 % (0.0-2.0); Eos # (Auto) 0.1 th/mm3 (0.0-0.4); Eos % (Auto) 2.6 % (0.0-4.0); Hematocrit 38.6 % (35.0-46.0); Hemoglobin 13.1 gm/dL (11.6-15.3); Lymph # (Auto) 1.5 th/mm3 (1.0-4.8); Lymph % (Auto) 28.4 % (9.0-44.0); Mean Corpuscular HGB Conc 34.1 % (32.0-36.0); Mean Corpuscular Volume 90.9 fL (80.0-100.0); Mean Platelet Volume 8.4 fL (7.0-11.0); Mono # (Auto) 0.5 th/mm3 (0.0-0.9); Mono % (Auto) 8.7 % (0.0-8.0); Neut # (Auto) 3.2 th/mm3 (1.8-7.7); Neut % (Auto) 59.2 % (16.0-70.0); Platelet Count 238 th/mm3 (150-450); Red Blood Count 4.24 mil/mm3 (4.00-5.30); Red Cell Distribution Width 14.7 % (11.6-17.2); White Blood Count 5.4 th/mm3 (4.0-11.0)
[2018-09-19 07:31] LABS: Albumin 2.7 g/dL (3.4-5.0); Anion Gap 5 meq/L (5-15); Aspartate Aminotransferase 16 U/L (15-37); Blood Urea Nitrogen 12 mg/dL (7-18); Calcium 8.4 mg/dL (8.5-10.1); Carbon Dioxide 28.4 meq/L (21.0-32.0); Chloride 109 meq/L (98-107); Glomerular Filtration Rate 63 mL/min (>89); Glucose,Random 95 mg/dL (74-106); Potassium 4.2 meq/L (3.5-5.1); Sodium 142 meq/L (136-145)
[2018-09-19 07:34] LABS: Alanine Aminotransferase 27 U/L (10-53); Alkaline Phosphatase 84 U/L (45-117); Total Protein 6.3 g/dL (6.4-8.2)
[2018-09-19] MEDS: Metoprolol Tartrate 25 MG Tablet PO SCH (08:52)
--- NOTE | 2018-09-19 12:00 | P.CONGS ---
[facility] Gen Surgery Consult Note Consult date: 09/19/18 Narrative: 72 yo F presented to the emergency department yesterday with 5 days of severe right upper quadrant and epigastric pain radiating to the back associated with chills. She had severe nausea 1 day. She had been evaluated at outpatient urgent care with a CT scan of the abdomen and pelvis which showed gallbladder wall thickening with surrounding inflammation. Her CBC and LFTs are normal. She has a history of coronary stents 2 years ago and is on Plavix. Past surgical history includes hysterectomy and removal of an ovarian tumor. Review of Systems All other systems reviewed negative except as stated in [facility] - History History Provided By: Patient - Medical History Medical History: Medical History (Last Reviewed 09/18/18 @ 16:31 by MANI Holly) Cataract H/O: hysterectomy HTN (hypertension) Ovarian tumor (benign) - Surgical History Surgical History: Surgical History (Last Reviewed 09/18/18 @ 16:31 by MANI Holly) Hx of heart artery stent - Family History Family History: Family History (Last Updated 09/18/18 @ 17:32 by Yves Carter MD) Other Coronary artery disease - Tobacco History Second Hand Smoke Exposure: Yes Tobacco Use In Past 30 Days: Yes Smoking Status: Current every day smoker Tobacco Type: Cigarettes - Alcohol History How Often Do You Have a Drink Containing Alcohol: 2 to 4 times a month - Substance Use History Substance History: No History of Abuse - Travel History Recent Travel in the [place] Within the Last 8 Weeks: No Recent Travel Out of the Country Within the Last 8 Weeks: No - Immunization History Tetanus Immunization: Unsure Medications and Allergies Active Medications: Active Medications Acetaminophen (Tylenol) 650 mg PO Q4H PRN PRN Reason: Temp > 100.4 Acetaminophen (Tylenol) 650 mg PO Q6H PRN PRN Reason: PAIN SCALE 1 TO 2 Hydrocodone Bitart/Acetaminophen ([place] 5/325) 1 tab PO Q4H PRN PRN Reason: PAIN SCALE 3 TO 5 Last Admin: 09/19/18 11:48 Dose: 1 tab Al Hydroxide/Mg Hydroxide (Milk Of Magnlesia Liq) 30 ml PO Q12H PRN PRN Reason: Mild Constipation Atorvastatin Calcium (Lipitor) 10 mg PO DAILY GANESH Last Admin: 09/19/18 08:52 Dose: 10 mg Ciprofloxacin/Dextrose (Cipro 400 Mg/200 Ml Inj) 400 mg in 200 mls @ 200 mls/ hr IV.SIG Q12H [facility] Last Infusion: 09/19/18 10:09 Dose: Infused Metronidazole/Sodium Chloride (Flagyl 500 Mg Inj) 100 mls @ 100 mls/hr IV.SIG Q8H [facility] Last Admin: 09/19/18 09:00 Dose: 100 mls/hr Isosorbide Mononitrate (Imdur) 60 mg PO DAILY@0700 [facility] Last Admin: 09/19/18 06:14 Dose: 60 mg Metoprolol Tartrate (Lopressor) 25 mg PO DAILY [facility] Last Admin: 09/19/18 08:52 Dose: 25 mg Naloxone HCl (Narcan Inj) 0.4 mg IV.PUSH UNSCH PRN PRN Reason: SEE LABEL COMMENTS Ondansetron HCl (Zofran Inj) 4 mg IV.PUSH Q6H PRN PRN Reason: NAUSEA OR VOMITING Last Admin: 09/19/18 11:52 Dose: 4 mg Ropinirole HCl (Requip) 1 mg PO TID [facility] Last Admin: 09/19/18 08:52 Dose: 1 mg Sodium Chloride (Ns Flush) 2 ml IV.FLUSH BID [facility] Last Admin: 09/19/18 08:52 Dose: 2 ml Sodium Chloride (Ns Flush) 2 ml IV.FLUSH UNSCH PRN PRN Reason: FLUSH AFTER USING IV ACCESS Allergies Allergy/AdvReac Type Severity Reaction Status Date / Time No Known Allergies Allergy Verified 09/18/18 14:31 Home Medications Medication Instructions Recorded Confirmed Type atorvastatin 10 mg PO DAILY 09/18/18 09/18/18 History clopidogrel [Plavix] 75 mg PO DAILY 09/18/18 09/18/18 History hydrocodone-acetaminophen 1 tab PO Q6H PRN 09/18/18 09/18/18 History isosorbide mononitrate 60 mg PO DAILY 09/18/18 09/18/18 History metoprolol tartrate 25 mg PO DAILY 09/18/18 09/18/18 History omeprazole-sodium bicarbonate 1 cap PO DAILY 09/18/18 09/18/18 History [Zegerid OTC] ropinirole 1 mg PO TID 09/18/18 09/18/18 History Exam Vital signs: Vital Signs 09/18/18 14:18 09/18/18 16:56 09/18/18 20:00 Temperature 97.7 F 97.6 F Pulse Rate 88 77 Respiratory Rate 14 3 L 20 Blood Pressure 174/79 H 161/79 H Pulse Oximetry 97 95 09/19/18 00:00 09/19/18 04:00 09/19/18 08:00 Temperature 97.6 F 98.2 F 97.7 F Pulse Rate 66 78 77 Respiratory Rate 18 16 20 Blood Pressure 130/76 153/68 H 125/70 Pulse Oximetry 98 95 99 Intake & Output 09/18/18 09/19/18 09/19/18 18:59 06:59 18:59 Intake Total 350 / 350 1099 / 1099 200 / 200 Balance 350 / 350 1099 / 1099 200 / 200 Weight 82.554 kg 92.6 kg Intake: IV 350 / 350 1099 / 1099 200 / 200 Cipro 400 MG/200 ML Inj 400 mg 200 / 200 200 / 200 In 200 ml @ 200 mls/hr IV.SIG Q12H [facility] Rx#:[id number] Zosyn 3.375 GM Premix 50 ML @ 50 / 50 100 mls/hr IV.SIG ONCE ONE Rx#: [id number] NS Inj 1,000 ML @ Wide Open IV. 100 / 100 SIG BOLUS ONE Rx#:[id number] Flagyl 500 MG Inj 100 ML @ 100 100 / 100 mls/hr IV.SIG Q8H [facility] Rx#: [id number] Other: # Voids 3 Date of Last Bowel Movement 09/18/18 09/18/18 Weight On Admission 82.55 kg Narrative: GENERAL: Awake and alert. No acute distress. Cooperative. HEAD: Normocephalic. Atraumatic. EYES: Pupils equal round and reactive to light bilaterally. No scleral icterus. ENT: Moist oral mucosa. NECK: Trachea midline. CHEST: Nonlabored breathing. No respiratory distress. CARDIOVASCULAR: Regular rate and rhythm. ABDOMEN: Soft. Significant tenderness in the epigastrium and right upper quadrant. No mass. EXTREMITIES: No cyanosis or edema. SKIN: Warm, dry, nonjaundiced. Results - Labs 09/19/18 06:23 09/19/18 06:23 Laboratory Results - last 24 hr 09/18/18 09/18/18 09/18/18 15:00 15:00 15:00 WBC 7.8 RBC 4.52 Hgb 14.2 Hct 41.8 MCV 92.4 MCH 31.4 MCHC 34.0 RDW 14.7 Plt Count 278 MPV 8.4 Neut % (Auto) 65.8 Lymph % (Auto) 23.7 [place] % (Auto) 7.8 Eos % (Auto) 1.9 Baso % (Auto) 0.8 Neut # (Auto) 5.2 Lymph # (Auto) 1.9 [place] # (Auto) 0.6 Eos # (Auto) 0.1 Baso # (Auto) 0.1 WBC Differential . Differential Comment Auto diff final PT 9.7 L INR 1.0 APTT 31.0 Sodium 138 Potassium 3.9 Chloride 107 Carbon Dioxide 26.0 Anion Gap 5 BUN 15 Creatinine 0.92 Estimated GFR 60 L Random Glucose 106 Calcium 8.4 L Magnesium 2.4 Total Bilirubin 0.2 AST 22 ALT 32 Alkaline Phosphatase 104 Total Protein 7.1 Albumin 3.2 L Lipase 172 Urine Color Urine Clarity Urine pH Ur Specific [place] Urine Protein Urine Glucose (UA) Urine Ketones Urine Occult Blood Urine Nitrate Urine Bilirubin Urine Urobilinogen Ur Leukocyte Esterase Urine RBC Urine WBC Ur Squamous Epith Cells Micro UA Comment Ur Microscopic Review Urine Culture Comments 09/18/18 09/19/18 09/19/18 21:40 06:23 06:23 WBC 5.4 RBC 4.24 Hgb 13.1 Hct 38.6 MCV 90.9 MCH 31.0 MCHC 34.1 RDW 14.7 Plt Count 238 MPV 8.4 Neut % (Auto) 59.2 Lymph % (Auto) 28.4 [place] % (Auto) 8.7 H Eos % (Auto) 2.6 Baso % (Auto) 1.1 Neut # (Auto) 3.2 Lymph # (Auto) 1.5 [place] # (Auto) 0.5 Eos # (Auto) 0.1 Baso # (Auto) 0.1 WBC Differential . Differential Comment Auto diff final PT INR APTT Sodium 142 Potassium 4.2 Chloride 109 H Carbon Dioxide 28.4 Anion Gap 5 BUN 12 Creatinine 0.89 Estimated GFR 63 L Random Glucose 95 Calcium 8.4 L Magnesium Total Bilirubin 0.2 AST 16 ALT 27 Alkaline Phosphatase 84 Total Protein 6.3 L D Albumin 2.7 L Lipase Urine Color [place] Urine Clarity Clear Urine pH 5.0 Ur Specific [place] 1.031 Urine Protein Negative Urine Glucose (UA) Negative Urine Ketones Negative Urine Occult Blood Negative Urine Nitrate Negative Urine Bilirubin Negative Urine Urobilinogen Less than 2 Ur Leukocyte Esterase Trace H Urine RBC 1 Urine WBC 24 H Ur Squamous Epith Cells 1 Micro UA Comment Culture indicated Ur Microscopic Review Not Reportable Urine Culture Comments Culture indicated - Imaging Imaging: ITS Impressions Chest X-Ray 09/18/18 14:56 CONCLUSION: 2.1 cm mass in the right hilar region. Further evaluation with contrast- enhanced chest CT is recommended. CT scan - abdomen: report reviewed CT scan - pelvis: report reviewed Assessment and Plan - Assessment (1) Acute cholecystitis Code(s): K81.0 - Acute cholecystitis Status: Acute - Plan The patient is a 72-year-old female with acute cholecystitis ongoing for 5 or 6 days who is on Plavix for coronary artery stents. Due to the length of the current episode and the antiplatelet use I will attempt nonoperative management at this time. Continue IV antibiotics. Continue clear liquids today. I will check an ultrasound to have a baseline on the amount of inflammation present. If she improves she will be able to discharge home on oral antibiotics and follow-up with me in the office with likely cholecystectomy planned in 6-8 weeks. Discussed in detail with the patient and her and they understand. Will follow along.
--- NOTE | 2018-09-19 14:23 | CT ---
EXAM DATE: 09/19/2018 2:11 PM EST AGE/SEX: 72 years / Female INDICATIONS: Evaluate for lung mass CLINICAL DATA: This is the patient's initial encounter. Patient reports that signs and symptoms have been present for 1 day and indicates a pain score of 0/10. MEDICAL/SURGICAL HISTORY: Cardiovascular disease. Hypertension. Hysterectomy. Coronary artery consuelo nt. RADIATION DOSE: 15.21 CTDI (mGy) COMPARISON: No prior exams available for comparison. TECHNIQUE: Multiple contiguous axial images were obtained through the chest during bolus infusion of 69 ml Omnipaque 350 (iohexol) nonionic water-soluble contrast as a single exam dose. Images were obtained in suspended respiration using multiple row detector helical technique. Using automated exp osure control and adjustment of the mA and/or kV according to patient size, radiation dose was kept a s low as reasonably achievable to obtain optimal diagnostic quality images. DICOM format image data is available electronically for review and comparison. FINDINGS: Lungs: 2 discrete right lung masses are identified. There is a 1.7 cm mass posteriorly in the lower right upper lobe. A 2.7 x 2.5 cm mass is identified in the superior segment of the right lower lobe a djacent to the posterior pleural margin. Mild pleural based airspace disease is seen in both lower lobes. Emphysematous changes are seen in both upper lobes. Mediastinum: Paratracheal and precarinal prominent lymph nodes are noted. A high right paratracheal lymph node measures 11 mm. The precarinal lymph node measures 1.6 x 2.2 cm. Moderate coronary artery calcification is noted. Pleurae: No evidence of focal thickening or pleural effusion. Axillae: Unremarkable. Bony Structures: Unremarkable. Miscellaneous: The examination was extended to include the upper abdomen, and both adrenal glands ar e normal in size and configuration. CONCLUSION: 1. Right upper and right lower lobe pulmonary masses as described. 2. Prominent paratracheal and precarinal mediastinal lymph nodes ranging in size up to 2.2 cm. 3. Mild posterior pleural based airspace disease in both lower lobes. Electronically signed by: Marquis Olea MD Board Certified Radiologist 09/19/2018 2:22 PM EST
--- NOTE | 2018-09-19 17:53 | P.PNIM ---
Subjective Interval history: Follow-up for acute cholecystitis, hypertension, hyperlipidemia, [place], CAD and tobacco dependence. Patient seen and examined laying in bed, just came back from CT scan. Going back for ultrasound. Patient complains of right upper abdominal pain at 5 out of 10 scale, states he just had pain medication. Patient dated had nausea earlier however had some medication and felt better no vomiting. Patient denies any diarrhea or constipation. Patient states that she had cleared herself with enema at home before she came. Patient denies any headache or dizziness, denies any chest pain or shortness of breath, denies any fever or chills. Physical Exam Vital signs: Last Vital Signs Temp 97.6 F 09/19/18 16:00 Pulse 70 09/19/18 16:00 Resp 20 09/19/18 16:00 BP 169/82 H 09/19/18 16:00 Pulse Ox 93 L 09/19/18 16:00 Intake & Output 09/17/18 09/18/18 09/19/18 09/20/18 06:59 06:59 06:59 06:59 Intake Total 1449 / 1449 200 / 200 Balance 1449 / 1449 200 / 200 Weight 92.6 kg Narrative: GENERAL: Well-developed, well-nourished, female in no apparent distress SKIN: Warm and dry. HEAD: Atraumatic. Normocephalic. EYES: Pupils equal and round. No scleral icterus. No injection or drainage. ENT: No nasal bleeding or discharge. Mucous membranes pink and moist. NECK: Trachea midline. No JVD. CARDIOVASCULAR: Regular rate and rhythm. RESPIRATORY: No accessory muscle use. Clear to auscultation. Breath sounds equal bilaterally. GASTROINTESTINAL: Abdomen obese soft, right upper quadrant tenderness on palpation,, nondistended. Hepatic and splenic margins not palpable. MUSCULOSKELETAL: Extremities without clubbing, cyanosis, or edema. No obvious deformities. NEUROLOGICAL: Awake and alert. No obvious cranial nerve deficits. Motor grossly within normal limits. Five out of 5 muscle strength in the arms and legs. Normal speech. PSYCHIATRIC: Appropriate mood and affect; insight and judgment normal. Results Labs CBC & Chem 7: 09/19/18 06:23 09/19/18 06:23 Labs: Microbiology 09/18/18 16:30 Blood - Peripheral Aerobic Blood Culture - Preliminary No growth in 1 day 09/18/18 16:30 Blood - Peripheral Anaerobic Blood Culture - Preliminary No growth in 1 day 09/18/18 16:25 Blood - Peripheral Aerobic Blood Culture - Preliminary No growth in 1 day 09/18/18 16:25 Blood - Peripheral Anaerobic Blood Culture - Preliminary No growth in 1 day Imaging Imaging: Impressions Chest CT 09/19/18 00:00 CONCLUSION: 1. Right upper and right lower lobe pulmonary masses as described. 2. Prominent paratracheal and precarinal mediastinal lymph nodes ranging in size up to 2.2 cm. 3. Mild posterior pleural based airspace disease in both lower lobes. Assessment and Plan Plan This is a 72 years old obese female with acute cholecystitis, and history of hypertension, CAD, hyperlipidemia, and tobacco abuse. Acute cholecystitis -Outside CT abdomen/pelvis noted -General surgeon consulted, appreciate recommendation: Nonoperative management is recommended at this time due to antiplatelet use. Continue IV antibiotics. Recommended for ultrasound to determine the amount of inflammation present. If improved patient may be discharged on oral antibiotic and to follow with the general surgeon for a likely cholecystectomy planned in 6-8 weeks -Hold Plavix -Ultrasound of the gallbladder ordered; follow results -Chest x-ray: 2.1 cm mass in the right hilar region. Further evaluation with contrast-enhanced chest CT is recommended -Chest CT : Right upper and right lower lobe pulmonary masses as described. Prominent paratracheal and precarinal mediastinal lymph nodes ranging in size up to 2.2 cm.3. Mild posterior pleural based airspace disease in both lower lobes -Pulmonology consulted, appreciate recommendation Hypertension -Blood pressure elevated, likely related to pain -Continue metoprolol and Imdur -Monitor blood pressure, adjust medication as necessary CAD Prior history of [place] and coronary stents No chest pain no shortness of breath -Hold Plavix and resume BB, Lipitor Hyperlipidemia -Resume atorvastatin -Monitor lipids and LFT Tobacco abuse -Tobacco counseling cessation provided -Patient declined nicotine patch -CXray :2.1 cm mass in the right hilar region per CXR -Chest CT for further evaluation as patient with history of tobacco abuse: Results as noted above DVT prophylaxis: Bilateral SCDs Progress Note: Quality VTE Deep Vein Thrombosis/Pulmonary Embolism Present on Admission: No
[2018-09-19] MEDS: Budesonide-Formoterol 160/4.5 MCG 6 GM Inhaler INH SCH (22:38)
--- NOTE | 2018-09-19 23:17 | US ---
EXAM DATE: 09/19/2018 11:06 PM EST AGE/SEX: 72 years / Female INDICATIONS: Right upper quadrant abdominal pain. CLINICAL DATA: This is the patient's initial encounter. Patient reports that signs and symptoms have been present for 3 days and indicates a pain score of 9/10. MEDICAL/SURGICAL HISTORY: Hypertension. Acute cholecystitis. Cataracts. Ovarian tumor-benign. C oronary artery disease. Myocardial infarction. Hysterectomy. Cardiac cath with stent. COMPARISON: POI, CT ABDOMEN AND PELVIS W/ CONTRAST, 09/18/2018. . MEASUREMENTS: Liver:__ 15.3 cm. Common Bile Duct:__ 4mm. FINDINGS: Liver: Normal echogenicity without focal lesion or ductal dilatation. Portal Vein: Hepatopedal flow seen in portal vein. Common Duct: No intraluminal mass or stone visualized. Gallbladder: There is echogenic material without shadowing seen within the gallbladder consistent wi th sludge. There is also some ringdown artifact seen from the anterior wall of the gallbladder consis tent with hyperplastic cholecystosis. Gallstones are not seen. The gallbladder wall is thickened. The gallbladder is distended. The technologist reports the Sanon's sign is absent. Pancreas: The visualized portions are within normal limits Right Kidney: Normal echogenicity and cortical thickness. No mass or hydronephrosis. Other: None. CONCLUSION: Distended gallbladder with thickened gallbladder wall. Gallstones are not seen. There is nonshadowing echogenic material within the gallbladder thought to be related to sludge. There does appear to be i nflammatory change seen around the gallbladder on the prior CT examination. Cholecystitis needs to be suspected based on the CT. However, gallstones are not seen and the technologist reports a negative sonographic Sanon's sign although its is uncertain if the patient has been treated with any pain med ication. These findings likely correlate with patient's clinical history. If necessary, one could con fitness supervisor a HIDA scan. Electronically signed by: Vikram Ann MD Board Certified Radiologist 09/19/2018 11:16 PM EST
[2018-09-20] MEDS: Ciprofloxacin 400 MG/200 ML 400 MG/200 ML PIGGYBACK IV.SIG SCH ×2 (04:22→16:58)
[2018-09-20] MEDS: Isosorbide Mononitrate 60 MG ER 24HR Tablet (Imdur) PO SCH ×2 (07:38→08:32)
[2018-09-20] MEDS: Metoprolol Tartrate 25 MG Tablet PO SCH ×2 (08:32→22:11)
[2018-09-20] MEDS: Budesonide-Formoterol 160/4.5 MCG 6 GM Inhaler INH SCH ×2 (08:33→22:12)
--- NOTE | 2018-09-20 11:18 | P.PNIM ---
Subjective Interval history: Follow-up for acute cholecystitis, pulmonary mass hypertension, hyperlipidemia, DC, CAD and tobacco dependence. She is seen and examined laying in bed, stated does not feel well. Patient stated right upper abdominal pain of 10 out of 10. However noted does not want to take any pain medication as she might throw it up. Patient complaint of nausea without vomiting. Nurse reported offered pain medication but patient refused any pain medication. Also reported of nausea, and just given Zofran for nausea. Patient denies any headache or dizziness, denies any chest pain or shortness of breath. Patient denies any fever or chills. Patient offered to have an IV pain medication for now patient agreed to take. Physical Exam Vital signs: Last Vital Signs Temp 97.5 F L 09/20/18 08:00 Pulse 84 09/20/18 08:00 Resp 20 09/20/18 08:00 BP 160/72 H 09/20/18 08:00 Pulse Ox 98 09/20/18 08:00 Intake & Output 09/18/18 09/19/18 09/20/18 09/21/18 06:59 06:59 06:59 06:59 Intake Total 1449 / 1449 900 / 900 Balance 1449 / 1449 900 / 900 Weight 92.6 kg Narrative: GENERAL: Well-developed, well-nourished, female in no apparent distress SKIN: Warm and dry. HEAD: Atraumatic. Normocephalic. EYES: Pupils equal and round. No scleral icterus. No injection or drainage. ENT: No nasal bleeding or discharge. Mucous membranes pink and moist. NECK: Trachea midline. No JVD. CARDIOVASCULAR: Regular rate and rhythm. RESPIRATORY: No accessory muscle use. Clear to auscultation. Breath sounds equal bilaterally. GASTROINTESTINAL: Abdomen obese soft, right upper quadrant tenderness on palpation,, nondistended. Hepatic and splenic margins not palpable. MUSCULOSKELETAL: Extremities without clubbing, cyanosis, or edema. No obvious deformities. NEUROLOGICAL: Awake and alert. No obvious cranial nerve deficits. Motor grossly within normal limits. Five out of 5 muscle strength in the arms and legs. Normal speech. PSYCHIATRIC: Appropriate mood and affect; insight and judgment normal. Results Labs CBC & Chem 7: 09/19/18 06:23 09/19/18 06:23 Labs: Microbiology 09/18/18 16:30 Blood - Peripheral Aerobic Blood Culture - Preliminary No growth in 2 days 09/18/18 16:30 Blood - Peripheral Anaerobic Blood Culture - Preliminary No growth in 2 days 09/18/18 16:25 Blood - Peripheral Aerobic Blood Culture - Preliminary No growth in 2 days 09/18/18 16:25 Blood - Peripheral Anaerobic Blood Culture - Preliminary No growth in 2 days Imaging Imaging: Impressions Chest CT 09/19/18 00:00 CONCLUSION: 1. Right upper and right lower lobe pulmonary masses as described. 2. Prominent paratracheal and precarinal mediastinal lymph nodes ranging in size up to 2.2 cm. 3. Mild posterior pleural based airspace disease in both lower lobes. Gallbladder Ultrasound 09/19/18 00:00 CONCLUSION: Distended gallbladder with thickened gallbladder wall. Gallstones are not seen. There is nonshadowing echogenic material within the gallbladder thought to be related to sludge. There does appear to be inflammatory change seen around the gallbladder on the prior CT examination. Cholecystitis needs to be suspected based on the CT. However, gallstones are not seen and the technologist reports a negative sonographic Sanon's sign although its is uncertain if the patient has been treated with any pain medication. These findings likely correlate with patient's clinical history. If necessary, one could consider a HIDA scan. Assessment and Plan Plan This is a 72 years old obese female with acute cholecystitis, and history of hypertension, CAD, hyperlipidemia, and tobacco abuse. Acute cholecystitis Abdominal pain Nausea, likely related to pain/cholecystitis -Outside CT abdomen/pelvis noted -General surgeon consulted, appreciate recommendation: Nonoperative management of acute cholecystitis. Continue IV antibiotics advance diet to full liquid if tolerating may discharge tomorrow with 1 week Cipro and Flagyl. Follow-up with general surgeon in first week of October. -Hold Plavix -Ultrasound of the gallbladder ordered; follow results -Chest x-ray: 2.1 cm mass in the right hilar region. Further evaluation with contrast-enhanced chest CT is recommended -Chest CT : Right upper and right lower lobe pulmonary masses as described. Prominent paratracheal and precarinal mediastinal lymph nodes ranging in size up to 2.2 cm.3. Mild posterior pleural based airspace disease in both lower lobes -add zofran PRN, pt encouraged to take pain medication for pain control - give one time dose of Morphine IV for pain control -advance diet as tolerated Hypertension -Blood pressure elevated, likely related to pain -Continue Imdur -Increase metoprolol dose with hold parameters -add clonidine as needed for SBP greater than 160 or DBP greater than 90 -Monitor blood pressure, adjust medication as necessary CAD -Prior history of DC and coronary stents -No chest pain no shortness of breath -Hold Plavix and resume BB, continueLipitor Hyperlipidemia -Resume atorvastatin -Monitor lipids and LFT Pulmonary Mass Tobacco abuse -Tobacco counseling cessation provided -Patient declined nicotine patch -Chest x-ray: 2.1 cm mass in the right hilar region. Further evaluation with contrast-enhanced chest CT is recommended -Chest CT : Right upper and right lower lobe pulmonary masses as described. Prominent paratracheal and precarinal mediastinal lymph nodes ranging in size up to 2.2 cm.3. Mild posterior pleural based airspace disease in both lower lobes -Pulmonology consulted, appreciate recommendation: plan for outpatient follow- up for possible biopsy DVT prophylaxis: Bilateral SCDs Progress Note: Quality VTE Deep Vein Thrombosis/Pulmonary Embolism Present on Admission: No
[2018-09-20] MEDS ORDERED: Morphine Sulfate Inj 2 MG/ML Vial IV.PUSH ONE (12:00)
--- NOTE | 2018-09-20 13:45 | MB ---
cc: Calli Herbert MD DATE: 09/19/2018 REASON FOR CONSULTATION: Lung masses. HISTORY OF PRESENT ILLNESS: This is a 72-year-old white female, known smoker for over 40 years, has been admitted with cholecystitis and a history for abdominal pain. The patient recently was sent to the ER because of abdominal pain and a CAT scan showed evidence of acute cholecystitis. The patient also complained of nausea in addition to right upper quadrant pain radiating into the back and surgical evaluation was done, but no surgery is planned since she is on Plavix, which has been placed on hold. She denies any hemoptysis, but has had a cough with mild wheezing. Upon admission she also had a CT scan of the chest, which was reportedly showing 2 lung masses in the right lung about 2.5 cm in diameter in the right lower lobe density, which was close to the pleural surface. The patient has had no nausea, vomiting, fevers or chills, or recent weight loss. PAST MEDICAL HISTORY: Includes history of removal of ovarian tumor which was benign, history of hysterectomy, and a history for hypertension. She is not aware of any chronic lung disease, but has been a smoker for over 40 years and continues to smoke. She had coronary artery stenting done for coronary artery disease. HABITS: The patient smoked 1 pack per day for over 40 years, up until now. Alcohol use, moderate. ALLERGIES: NO DRUG ALLERGIES LISTED. FAMILY HISTORY: Essentially noncontributory. No significant history of chronic lung disease. Significant for heart disease. REVIEW OF SYSTEMS: The patient denies recent weight loss. No headaches or blackouts. No urinary symptoms. She has pain in the right upper quadrant and lower chest area and some shortness of breath with wheezing. No night sweats, fevers or chills. No leg or calf muscle pains. She also has some leg cramping and muscle aches. MEDICATIONS: 1. Flagyl 500 mg every 8 hours. 2. Isordil 60 mg a day. 3. Metoprolol 25 mg daily. 4. Rives 5/325 one p.r.n. 5. Cipro 400 mg b.i.d. 6. Lipitor 10 mg a day. 7. Ropinirole 1 mg t.i.d. PHYSICAL EXAMINATION: GENERAL: This is a moderately obese, elderly lady, alert, pale, in no acute distress. VITAL SIGNS: Blood pressure 150/80, pulse is 85, respirations 16, temperature 97.5. HEENT: Head is normocephalic. Pupils are reactive and equal. Sclerae clear. Throat is mildly injected. Ears: No inflammation. NECK: No bruits. No thyroid enlargement or lymphadenopathy. CHEST: Equal movements with the scattered expiratory wheezes with prolonged expirations. No crackles. HEART: Sounds are regular, S1, S2. No murmur. No S3. ABDOMEN: Soft, obese without masses. No organomegaly or tenderness. Bowel sounds active. EXTREMITIES: No lesions. Minimal edema. No calf tenderness. Reflexes are 1+. No gross motor deficits. NEUROLOGIC: Cranial nerves are grossly intact. SKIN: No lesions noted. IMPRESSION: 1. Right lung masses, rule out malignancy. 2. Chronic obstructive pulmonary disease with acute exacerbation. 3. Acute cholecystitis. 4. Hypertension. 5. Nicotine dependency. PLAN: The patient was counseled about quitting cigarette smoking. Nebulized DuoNeb solution added t.i.d. and p.r.n. Bedside pulmonary function study will be obtained. She is getting antibiotic therapy, which we will continue as ordered and will also get a sputum for culture and Gram stain. She will need a CT-guided needle biopsy of one of the lung masses and this will be planned once she is off the Plavix for 5 days and the procedure was discussed with her including risks and potential complications. I will follow the case with you, Dr. Carter. Thank you for this consultation. Calli Herbert MD VGILBERTO/ , 12:24 PM , 12:38 PM
--- NOTE | 2018-09-20 14:20 | P.PNGS ---
Subjective Interval history: She is feeling better overall but did have an episode of nausea after having broth for breakfast. The pain is improving. Afebrile. Physical Exam Vital signs: Vital Signs 09/19/18 16:00 09/19/18 20:00 09/19/18 21:12 Temperature 97.6 F 97.3 F L Pulse Rate 70 78 71 Respiratory Rate 20 20 18 Blood Pressure 169/82 H 182/90 H Pulse Oximetry 93 L 96 09/20/18 00:00 09/20/18 03:00 09/20/18 04:00 Temperature 98.2 F 97.5 F L Pulse Rate 82 66 69 Respiratory Rate 20 20 18 Blood Pressure 142/80 H 148/82 H Pulse Oximetry 95 96 09/20/18 08:00 09/20/18 12:00 Temperature 97.5 F L 98.0 F Pulse Rate 84 69 Respiratory Rate 20 20 Blood Pressure 160/72 H 161/79 H Pulse Oximetry 98 98 Intake & Output 09/19/18 09/20/18 09/20/18 18:59 06:59 18:59 Intake Total 500 / 500 400 / 400 Balance 500 / 500 400 / 400 Intake: IV 500 / 500 400 / 400 Cipro 400 MG/200 ML Inj 400 mg 400 / 400 200 / 200 In 200 ml @ 200 mls/hr IV.SIG Q12H GANESH Rx#:[id number] Flagyl 500 MG Inj 100 ML @ 100 100 / 100 200 / 200 mls/hr IV.SIG Q8H GANESH Rx#: [id number] Other: # Voids 6 1 Date of Last Bowel Movement 09/18/18 09/18/18 09/18/18 Narrative: NAD Abd: soft, mild RUQ ttp Results - Labs 09/19/18 06:23 09/19/18 06:23 - Imaging Imaging: ITS Impressions Chest X-Ray 09/18/18 14:56 CONCLUSION: 2.1 cm mass in the right hilar region. Further evaluation with contrast- enhanced chest CT is recommended. Chest CT 09/19/18 00:00 CONCLUSION: 1. Right upper and right lower lobe pulmonary masses as described. 2. Prominent paratracheal and precarinal mediastinal lymph nodes ranging in size up to 2.2 cm. 3. Mild posterior pleural based airspace disease in both lower lobes. Gallbladder Ultrasound 09/19/18 00:00 CONCLUSION: Distended gallbladder with thickened gallbladder wall. Gallstones are not seen. There is nonshadowing echogenic material within the gallbladder thought to be related to sludge. There does appear to be inflammatory change seen around the gallbladder on the prior CT examination. Cholecystitis needs to be suspected based on the CT. However, gallstones are not seen and the technologist reports a negative sonographic Sanon's sign although its is uncertain if the patient has been treated with any pain medication. These findings likely correlate with patient's clinical history. If necessary, one could consider a HIDA scan. Assessment and Plan - Assessment (1) Acute cholecystitis Code(s): K81.0 - Acute cholecystitis Status: Acute - Plan The patient is a 72-year-old female with acute cholecystitis ongoing for 5 or 6 days who is on Plavix for coronary artery stents. Continue nonoperative management of her acute cholecystitis. Cont IV antibiotics. Try fulls. If she can tolerate low fat diet tomorrow she could be discharged home on one week cipro/flagyl. F/u with me early October.
--- NOTE | 2018-09-20 17:59 | P.PN ---
Subjective Interval history: She is feeling better. Off O2 . No abdominal pains. Has some nausea. Needs Biopsy of lung mass. Physical Exam Vital signs: Vital Signs 09/19/18 20:00 09/19/18 21:12 09/20/18 00:00 Temperature 97.3 F L 98.2 F Pulse Rate 78 71 82 Respiratory Rate 20 18 20 Blood Pressure 182/90 H 142/80 H Pulse Oximetry 96 95 09/20/18 03:00 09/20/18 04:00 09/20/18 08:00 Temperature 97.5 F L 97.5 F L Pulse Rate 66 69 84 Respiratory Rate 20 18 20 Blood Pressure 148/82 H 160/72 H Pulse Oximetry 96 98 09/20/18 12:00 Temperature 98.0 F Pulse Rate 69 Respiratory Rate 20 Blood Pressure 161/79 H Pulse Oximetry 98 Intake & Output 09/19/18 09/20/18 09/20/18 18:59 06:59 18:59 Intake Total 500 / 500 400 / 400 Balance 500 / 500 400 / 400 Intake: IV 500 / 500 400 / 400 Cipro 400 MG/200 ML Inj 400 mg 400 / 400 200 / 200 In 200 ml @ 200 mls/hr IV.SIG Q12H GANESH Rx#:[id number] Flagyl 500 MG Inj 100 ML @ 100 100 / 100 200 / 200 mls/hr IV.SIG Q8H GANESH Rx#: [id number] Other: # Voids 6 1 Date of Last Bowel Movement 09/18/18 09/18/18 09/18/18 Narrative: GENERAL: Well-developed, well-nourished, female in no apparent distress SKIN: Warm and dry. HEAD: Atraumatic. Normocephalic. EYES: Pupils equal and round. No scleral icterus. No injection or drainage. ENT: No nasal bleeding or discharge. Mucous membranes pink and moist. NECK: Trachea midline. No JVD. CARDIOVASCULAR: Regular rate and rhythm. RESPIRATORY: No accessory muscle use. Occ wheeze heard. Breath sounds equal bilaterally. GASTROINTESTINAL: Abdomen obese soft, right upper quadrant tenderness on palpation,, nondistended. Hepatic and splenic margins not palpable. MUSCULOSKELETAL: Extremities without clubbing, cyanosis, or edema. No obvious deformities. NEUROLOGICAL: Awake and alert. No obvious cranial nerve deficits. Motor grossly within normal limits. Normal speech. PSYCHIATRIC: Appropriate mood and affect; insight and judgment normal. Results - Labs CBC & Chem 7: 09/19/18 06:23 09/19/18 06:23 Microbiology 09/18/18 21:40 Clean Catch Urine Urine Culture - Preliminary No growth in 24 hours 09/18/18 16:30 Blood - Peripheral Aerobic Blood Culture - Preliminary No growth in 2 days 09/18/18 16:30 Blood - Peripheral Anaerobic Blood Culture - Preliminary No growth in 2 days 09/18/18 16:25 Blood - Peripheral Aerobic Blood Culture - Preliminary No growth in 2 days 09/18/18 16:25 Blood - Peripheral Anaerobic Blood Culture - Preliminary No growth in 2 days - Imaging Impressions Gallbladder Ultrasound 09/19/18 00:00 CONCLUSION: Distended gallbladder with thickened gallbladder wall. Gallstones are not seen. There is nonshadowing echogenic material within the gallbladder thought to be related to sludge. There does appear to be inflammatory change seen around the gallbladder on the prior CT examination. Cholecystitis needs to be suspected based on the CT. However, gallstones are not seen and the technologist reports a negative sonographic Sanon's sign although its is uncertain if the patient has been treated with any pain medication. These findings likely correlate with patient's clinical history. If necessary, one could consider a HIDA scan. Assessment and Plan - Assessment (1) COPD (chronic obstructive pulmonary disease) Code(s): J44.9 - Chronic obstructive pulmonary disease, unspecified Status: Acute (2) Mass of right lung Code(s): R91.8 - Other nonspecific abnormal finding of lung field Status: Acute (3) Acute cholecystitis Code(s): K81.0 - Acute cholecystitis Status: Acute - Plan 1. Will add Albuterol nebs qid PRN 2. Will schedule biopsy of Right lung density 3. PFT with bronchodilators 4. Continue antibiotics , Cipro/ Flagyl 5. Cont Requip 1 mg TID
[2018-09-20] MEDS: Loratadine 10 MG Tablet PO SCH (22:11)
[2018-09-21] MEDS ORDERED: metroNIDAZOLE 500 MG Tablet PO ONE (04:16)
[2018-09-21] MEDS ORDERED: Ciprofloxacin 500 MG Tablet PO ONE (04:16)
[2018-09-21] MEDS: Ciprofloxacin 400 MG/200 ML 400 MG/200 ML PIGGYBACK IV.SIG SCH ×2 (05:04→17:07)
[2018-09-21] MEDS: Isosorbide Mononitrate 60 MG ER 24HR Tablet (Imdur) PO SCH (06:43)
[2018-09-21] MEDS: Metoprolol Tartrate 25 MG Tablet PO SCH ×2 (08:28→22:36)
[2018-09-21] MEDS: Loratadine 10 MG Tablet PO SCH (08:28)
[2018-09-21] MEDS: Budesonide-Formoterol 160/4.5 MCG 6 GM Inhaler INH SCH ×2 (08:29→22:43)
--- NOTE | 2018-09-21 10:46 | P.PNGS ---
Subjective Patient reports: feels better, tolerating a regular diet Physical Exam Vital signs: Vital Signs 09/20/18 12:00 09/20/18 16:00 09/20/18 20:00 Temperature 98.0 F 97.8 F 97.6 F Pulse Rate 69 70 68 Respiratory Rate 20 20 20 Blood Pressure 161/79 H 174/89 H 171/77 H Pulse Oximetry 98 95 94 L 09/21/18 00:00 09/21/18 04:00 09/21/18 06:43 Temperature 97.9 F 98.1 F Pulse Rate 69 65 56 L Respiratory Rate 20 20 Blood Pressure 167/78 H 182/74 H 147/71 H Pulse Oximetry 94 L 96 09/21/18 08:00 Temperature 97.9 F Pulse Rate 75 Respiratory Rate 20 Blood Pressure 129/63 Pulse Oximetry 95 Intake & Output 09/20/18 09/21/18 09/21/18 18:59 06:59 18:59 Intake Total 880 / 880 Balance 880 / 880 Intake: IV 400 / 400 Cipro 400 MG/200 ML Inj 400 mg 200 / 200 In 200 ml @ 200 mls/hr IV.SIG Q12H GANESH Rx#:[id number] Flagyl 500 MG Inj 100 ML @ 100 200 / 200 mls/hr IV.SIG Q8H GANESH Rx#: [id number] Oral 480 / 480 Other: # Voids 3 5 Date of Last Bowel Movement 09/18/18 09/19/18 - Constitutional no acute distress - Routine Abdominal Exam Present: soft, tenderness. Absent: guarding, firm, rigid Comments: RUQ tenderness Results - Labs 09/19/18 06:23 09/19/18 06:23 - Imaging Imaging: ITS Impressions Chest X-Ray 09/18/18 14:56 CONCLUSION: 2.1 cm mass in the right hilar region. Further evaluation with contrast- enhanced chest CT is recommended. Chest CT 09/19/18 00:00 CONCLUSION: 1. Right upper and right lower lobe pulmonary masses as described. 2. Prominent paratracheal and precarinal mediastinal lymph nodes ranging in size up to 2.2 cm. 3. Mild posterior pleural based airspace disease in both lower lobes. Gallbladder Ultrasound 09/19/18 00:00 CONCLUSION: Distended gallbladder with thickened gallbladder wall. Gallstones are not seen. There is nonshadowing echogenic material within the gallbladder thought to be related to sludge. There does appear to be inflammatory change seen around the gallbladder on the prior CT examination. Cholecystitis needs to be suspected based on the CT. However, gallstones are not seen and the technologist reports a negative sonographic Sanon's sign although its is uncertain if the patient has been treated with any pain medication. These findings likely correlate with patient's clinical history. If necessary, one could consider a HIDA scan. Assessment and Plan - Assessment (1) Acute cholecystitis Code(s): K81.0 - Acute cholecystitis Status: Acute Plan: cont non operative management if continue to do well can have cholecystectomy as outpatient
--- NOTE | 2018-09-21 14:43 | P.PNIM ---
Subjective Interval history: Follow-up for acute cholecystitis, pulmonary mass hypertension , hyperlipidemia, CO, CAD and tobacco dependence. Patient seen and examined sitting at the bedside, stated pain is a lot better control, slight abdominal pain, slight nausea without vomiting. Patient tolerating breakfast. Discharge discussed the plan for biopsy of the lung mass scheduled on Sunday. Trying to arrange for an outpatient schedule however failed to schedule as an outpatient due to radiology scheduling. Patient denies any headache or dizziness, denies any fever or chills. Physical Exam Vital signs: Last Vital Signs Temp 97.9 F 09/21/18 08:00 Pulse 75 09/21/18 08:00 Resp 20 09/21/18 08:00 BP 129/63 09/21/18 08:00 Pulse Ox 95 09/21/18 08:00 Intake & Output 09/19/18 09/20/18 09/21/18 09/22/18 06:59 06:59 06:59 06:59 Intake Total 1449 / 1449 900 / 900 880 / 880 Balance 1449 / 1449 900 / 900 880 / 880 Weight 92.6 kg Narrative: GENERAL: Well-developed, well-nourished, female in no apparent distress SKIN: Warm and dry. HEAD: Atraumatic. Normocephalic. EYES: Pupils equal and round. No scleral icterus. No injection or drainage. ENT: No nasal bleeding or discharge. Mucous membranes pink and moist. NECK: Trachea midline. No JVD. CARDIOVASCULAR: Regular rate and rhythm. RESPIRATORY: No accessory muscle use. Occ wheeze heard. Breath sounds equal bilaterally. GASTROINTESTINAL: Abdomen obese soft, slight right upper quadrant tenderness on palpation, nondistended. Hepatic and splenic margins not palpable. MUSCULOSKELETAL: Extremities without clubbing, cyanosis, or edema. No obvious deformities. NEUROLOGICAL: Awake and alert. No obvious cranial nerve deficits. Motor grossly within normal limits. Normal speech. PSYCHIATRIC: Appropriate mood and affect; insight and judgment normal. Results Labs CBC & Chem 7: 09/19/18 06:23 09/19/18 06:23 Labs: Microbiology 09/18/18 16:30 Blood - Peripheral Aerobic Blood Culture - Preliminary No growth in 3 days 09/18/18 16:30 Blood - Peripheral Anaerobic Blood Culture - Preliminary No growth in 3 days 09/18/18 16:25 Blood - Peripheral Aerobic Blood Culture - Preliminary No growth in 3 days 12/12/18 16:25 Blood - Peripheral Anaerobic Blood Culture - Preliminary No growth in 3 days 09/18/18 21:40 Clean Catch Urine Urine Culture - Final No growth in 48 hours Assessment and Plan (1) COPD (chronic obstructive pulmonary disease): Code(s): J44.9 - Chronic obstructive pulmonary disease, unspecified Status: Acute (2) Mass of right lung: Code(s): R91.8 - Other nonspecific abnormal finding of lung field Status: Acute (3) Acute cholecystitis: Code(s): K81.0 - Acute cholecystitis Status: Acute Plan This is a 72 years old obese female with acute cholecystitis, and history of hypertension, CAD, hyperlipidemia, and tobacco abuse. Acute cholecystitis Abdominal pain Nausea, likely related to pain/cholecystitis -Outside CT abdomen/pelvis noted -General surgeon consulted, appreciate recommendation: Nonoperative management of acute cholecystitis. Continue IV antibiotics advance diet to full liquid if tolerating may discharge tomorrow with 1 week Cipro and Flagyl. Follow-up with general surgeon in first week of October. -Hold Plavix -Ultrasound of the gallbladder ordered; follow results -Chest x-ray: 2.1 cm mass in the right hilar region. Further evaluation with contrast-enhanced chest CT is recommended -Chest CT : Right upper and right lower lobe pulmonary masses as described. Prominent paratracheal and precarinal mediastinal lymph nodes ranging in size up to 2.2 cm.3. Mild posterior pleural based airspace disease in both lower lobes -Continue Zofran PRN for nausea, -pt encouraged to take pain medication for pain control - s/p one time dose of Morphine IV for pain control -advance diet as tolerated, patient tolerating nonfat diet Hypertension -Blood pressure elevated, likely related to pain, blood pressure improving -Continue Imdur -Increase metoprolol dose with hold parameters -add clonidine as needed for SBP greater than 160 or DBP greater than 90 -Monitor blood pressure, adjust medication as necessary CAD -Prior history of CO and coronary stents -No chest pain no shortness of breath -Hold Plavix and resume BB, continue Lipitor Hyperlipidemia -Resume atorvastatin -Monitor lipids and LFT Pulmonary Mass Tobacco abuse -Tobacco counseling cessation provided -Patient declined nicotine patch -Chest x-ray: 2.1 cm mass in the right hilar region. Further evaluation with contrast-enhanced chest CT is recommended -Chest CT : Right upper and right lower lobe pulmonary masses as described. Prominent paratracheal and precarinal mediastinal lymph nodes ranging in size up to 2.2 cm.3. Mild posterior pleural based airspace disease in both lower lobes -Pulmonology consulted, appreciate recommendation: plan for outpatient follow- up for possible biopsy -Try to schedule lung biopsy as an outpatient however after communication with radiology and with outreach and education social worker and able to schedule patient as an outpatient due to radiology scheduling. DVT prophylaxis: Bilateral SCDs Progress Note: Quality VTE Deep Vein Thrombosis/Pulmonary Embolism Present on Admission: No _ (1) COPD (chronic obstructive pulmonary disease) Qualifiers: COPD type: Chronic bronchitis type: Emphysema type:
--- NOTE | 2018-09-21 15:18 | P.PN ---
Subjective Interval history: She is sleepy. Less nausea. No chest pain Able to eat a soft diet. Physical Exam Vital signs: Vital Signs 09/20/18 16:00 09/20/18 20:00 09/21/18 00:00 Temperature 97.8 F 97.6 F 97.9 F Pulse Rate 70 68 69 Respiratory Rate 20 20 20 Blood Pressure 174/89 H 171/77 H 167/78 H Pulse Oximetry 95 94 L 94 L 09/21/18 04:00 09/21/18 06:43 09/21/18 08:00 Temperature 98.1 F 97.9 F Pulse Rate 65 56 L 75 Respiratory Rate 20 20 Blood Pressure 182/74 H 147/71 H 129/63 Pulse Oximetry 96 95 Intake & Output 09/20/18 09/21/18 09/21/18 18:59 06:59 18:59 Intake Total 880 / 880 Balance 880 / 880 Intake: IV 400 / 400 Cipro 400 MG/200 ML Inj 400 mg 200 / 200 In 200 ml @ 200 mls/hr IV.SIG Q12H GANESH Rx#:[id number] Flagyl 500 MG Inj 100 ML @ 100 200 / 200 mls/hr IV.SIG Q8H GANESH Rx#: [id number] Oral 480 / 480 Other: # Voids 3 5 Date of Last Bowel Movement 09/18/18 09/19/18 Narrative: GENERAL: Well-developed, well-nourished, female in no apparent distress SKIN: Warm and dry. HEAD: Atraumatic. Normocephalic. EYES: Pupils equal and round. No scleral icterus. No injection or drainage. ENT: No nasal bleeding or discharge. Mucous membranes pink and moist. NECK: Trachea midline. No JVD. CARDIOVASCULAR: Regular rate and rhythm. RESPIRATORY: No accessory muscle use. Occ wheeze heard. Breath sounds equal bilaterally. GASTROINTESTINAL: Abdomen obese soft, slight right upper quadrant tenderness on palpation, nondistended. Hepatic and splenic margins not palpable. MUSCULOSKELETAL: Extremities without clubbing, cyanosis, or edema. No obvious deformities. NEUROLOGICAL: Awake and alert. No obvious cranial nerve deficits. Motor grossly within normal limits. Normal speech. PSYCHIATRIC: Appropriate mood and affect; insight and judgment normal. Results - Labs CBC & Chem 7: 09/19/18 06:23 09/19/18 06:23 Microbiology 09/18/18 16:30 Blood - Peripheral Aerobic Blood Culture - Preliminary No growth in 3 days 09/18/18 16:30 Blood - Peripheral Anaerobic Blood Culture - Preliminary No growth in 3 days 09/18/18 16:25 Blood - Peripheral Aerobic Blood Culture - Preliminary No growth in 3 days 09/18/18 16:25 Blood - Peripheral Anaerobic Blood Culture - Preliminary No growth in 3 days 09/18/18 21:40 Clean Catch Urine Urine Culture - Final No growth in 48 hours Assessment and Plan - Assessment (1) COPD (chronic obstructive pulmonary disease) Code(s): J44.9 - Chronic obstructive pulmonary disease, unspecified Status: Acute (2) Mass of right lung Code(s): R91.8 - Other nonspecific abnormal finding of lung field Status: Acute (3) Acute cholecystitis Code(s): K81.0 - Acute cholecystitis Status: Acute - Plan 1. Will add Albuterol nebs qid PRN 2. Will schedule biopsy of Right lung density on Sunday 3. PFT with bronchodilators 4. Continue antibiotics , Cipro/ Flagyl 5. Cont Requip 1 mg TID 6. Zofran 4mg Q6H prn
[2018-09-22] MEDS: metroNIDAZOLE 500 MG Tablet PO SCH ×4 (02:30→22:32)
[2018-09-22] MEDS: Ciprofloxacin 500 MG Tablet PO SCH ×3 (02:30→22:32)
[2018-09-22] MEDS: Isosorbide Mononitrate 60 MG ER 24HR Tablet (Imdur) PO SCH (08:30)
[2018-09-22] MEDS: Loratadine 10 MG Tablet PO SCH (09:04)
[2018-09-22] MEDS: Metoprolol Tartrate 25 MG Tablet PO SCH ×2 (09:05→22:32)
[2018-09-22] MEDS: Budesonide-Formoterol 160/4.5 MCG 6 GM Inhaler INH SCH ×2 (09:08→23:46)
--- NOTE | 2018-09-22 10:01 | P.PNGS ---
Subjective Patient reports: feels better, pain is less, tolerating a regular diet, flatus Physical Exam Vital signs: Vital Signs 09/21/18 12:00 09/21/18 16:00 09/21/18 20:00 Temperature 97.9 F 98.1 F 98.1 F Pulse Rate 62 66 71 Respiratory Rate 20 20 16 Blood Pressure 162/76 H 188/89 H 190/100 H Pulse Oximetry 94 L 93 L 95 09/22/18 00:00 09/22/18 04:00 09/22/18 04:30 Temperature 98.1 F 97.7 F Pulse Rate 58 L 58 L Respiratory Rate 16 15 Blood Pressure 168/75 H 190/75 H 165/71 H Pulse Oximetry 92 L 90 L Intake & Output 09/21/18 09/22/18 09/22/18 18:59 06:59 18:59 Intake Total 720 / 720 480 / 480 Balance 720 / 720 480 / 480 Weight 91.9 kg Intake: Oral 720 / 720 480 / 480 Other: # Voids 6 # Bowel Movements 1 - Constitutional no acute distress - Routine Abdominal Exam Present: soft. Absent: tenderness Results - Labs 09/19/18 06:23 09/19/18 06:23 - Imaging Imaging: ITS Impressions Chest X-Ray 09/18/18 14:56 CONCLUSION: 2.1 cm mass in the right hilar region. Further evaluation with contrast- enhanced chest CT is recommended. Chest CT 09/19/18 00:00 CONCLUSION: 1. Right upper and right lower lobe pulmonary masses as described. 2. Prominent paratracheal and precarinal mediastinal lymph nodes ranging in size up to 2.2 cm. 3. Mild posterior pleural based airspace disease in both lower lobes. Gallbladder Ultrasound 09/19/18 00:00 CONCLUSION: Distended gallbladder with thickened gallbladder wall. Gallstones are not seen. There is nonshadowing echogenic material within the gallbladder thought to be related to sludge. There does appear to be inflammatory change seen around the gallbladder on the prior CT examination. Cholecystitis needs to be suspected based on the CT. However, gallstones are not seen and the technologist reports a negative sonographic Sanon's sign although its is uncertain if the patient has been treated with any pain medication. These findings likely correlate with patient's clinical history. If necessary, one could consider a HIDA scan. Assessment and Plan - Assessment (1) Acute cholecystitis Code(s): K81.0 - Acute cholecystitis Status: Acute Plan: cont non operative management Pt can have cholecystectomy as outpatient f/u with Dr. Crockett after D/C
--- NOTE | 2018-09-22 10:52 | P.PNIM ---
Subjective Interval history: Follow-up for acute cholecystitis, pulmonary mass hypertension , hyperlipidemia, [place], CAD and tobacco dependence. Patient seen and examined laying in bed, stated trying to go back to sleep. Patient stated she had nausea yesterday but none today. Denies any vomiting. Abdominal pain controlled by pain medication controllable at this time. Patient denies any headache or dizziness, denies any chest pain or shortness of breath, denies any diarrhea or constipation, denies any fever or chills. Nurse denies any acute issues overnight Physical Exam Vital signs: Last Vital Signs Temp 97.5 F L 09/22/18 08:00 Pulse 61 09/22/18 08:00 Resp 16 09/22/18 08:00 BP 149/70 H 09/22/18 08:00 Pulse Ox 97 09/22/18 08:00 Intake & Output 09/20/18 09/21/18 09/22/18 09/23/18 06:59 06:59 06:59 06:59 Intake Total 900 / 900 880 / 880 1200 / 1200 Balance 900 / 900 880 / 880 1200 / 1200 Weight 91.9 kg Narrative: GENERAL: Well-developed, well-nourished, female in no apparent distress SKIN: Warm and dry. HEAD: Atraumatic. Normocephalic. EYES: Pupils equal and round. No scleral icterus. No injection or drainage. ENT: No nasal bleeding or discharge. Mucous membranes pink and moist. NECK: Trachea midline. No JVD. CARDIOVASCULAR: Regular rate and rhythm. RESPIRATORY: No accessory muscle use. Occ wheeze heard. Breath sounds equal bilaterally. GASTROINTESTINAL: Abdomen obese soft, slight right upper quadrant tenderness on palpation, nondistended. Hepatic and splenic margins not palpable. MUSCULOSKELETAL: Extremities without clubbing, cyanosis, or edema. No obvious deformities. NEUROLOGICAL: Awake and alert. No obvious cranial nerve deficits. Motor grossly within normal limits. Normal speech. PSYCHIATRIC: Appropriate mood and affect; insight and judgment normal. Results Labs CBC & Chem 7: 09/19/18 06:23 09/19/18 06:23 Labs: Microbiology 09/18/18 16:30 Blood - Peripheral Aerobic Blood Culture - Preliminary No growth in 3 days 09/18/18 16:30 Blood - Peripheral Anaerobic Blood Culture - Preliminary No growth in 3 days 09/18/18 16:25 Blood - Peripheral Aerobic Blood Culture - Preliminary No growth in 3 days 09/18/18 16:25 Blood - Peripheral Anaerobic Blood Culture - Preliminary No growth in 3 days 09/18/18 21:40 Clean Catch Urine Urine Culture - Final No growth in 48 hours Assessment and Plan (1) COPD (chronic obstructive pulmonary disease): Code(s): J44.9 - Chronic obstructive pulmonary disease, unspecified Status: Acute (2) Mass of right lung: Code(s): R91.8 - Other nonspecific abnormal finding of lung field Status: Acute (3) Acute cholecystitis: Code(s): K81.0 - Acute cholecystitis Status: Acute Plan This is a 72 years old obese female with acute cholecystitis, and history of hypertension, CAD, hyperlipidemia, and tobacco abuse. Acute cholecystitis Abdominal pain Nausea, likely related to pain/cholecystitis -Outside CT abdomen/pelvis noted -General surgeon consulted, appreciate recommendation: Nonoperative management of acute cholecystitis. Continue IV antibiotics advance diet to full liquid if tolerating may discharge tomorrow with 1 week Cipro and Flagyl. Follow-up with general surgeon in first week of October. -Hold Plavix -Ultrasound of the gallbladder ordered; follow results -Chest x-ray: 2.1 cm mass in the right hilar region. Further evaluation with contrast-enhanced chest CT is recommended -Chest CT : Right upper and right lower lobe pulmonary masses as described. Prominent paratracheal and precarinal mediastinal lymph nodes ranging in size up to 2.2 cm.3. Mild posterior pleural based airspace disease in both lower lobes -Continue Zofran PRN for nausea, -pt encouraged to take pain medication for pain control -Patient pain better controlled when taking pain medication. -advance diet as tolerated, patient tolerating nonfat diet, no nausea no vomiting today Hypertension -Blood pressure elevated, likely related to pain, blood pressure improving -Continue Imdur -Increase metoprolol dose with hold parameters -add clonidine as needed for SBP greater than 160 or DBP greater than 90 -Monitor blood pressure, adjust medication as necessary CAD -Prior history of [place] and coronary stents -No chest pain no shortness of breath -Hold Plavix and resume BB, continue Lipitor Hyperlipidemia -Resume atorvastatin -Monitor lipids and LFT Pulmonary Mass Tobacco abuse -Tobacco counseling cessation provided -Patient declined nicotine patch at this time -Chest x-ray: 2.1 cm mass in the right hilar region. Further evaluation with contrast-enhanced chest CT is recommended -Chest CT : Right upper and right lower lobe pulmonary masses as described. Prominent paratracheal and precarinal mediastinal lymph nodes ranging in size up to 2.2 cm.3. Mild posterior pleural based airspace disease in both lower lobes -Pulmonology consulted, appreciate recommendation: plan for outpatient follow- up for possible biopsy -Try to schedule lung biopsy as an outpatient however after communication with radiology and with oncology social work and unable to schedule patient as an outpatient due to radiology scheduling. -Patient scheduled for inpatient lung mass needle biopsy on Sunday DVT prophylaxis: Bilateral SCDs Progress Note: Quality VTE Deep Vein Thrombosis/Pulmonary Embolism Present on Admission: No _ (1) COPD (chronic obstructive pulmonary disease) Qualifiers: COPD type: Chronic bronchitis type: Emphysema type:
--- NOTE | 2018-09-22 16:21 | P.PN ---
Subjective Interval history: Feels better. No Nausea. Off O2 . Will have lung biopsy in am. Cough at times. Physical Exam Vital signs: Vital Signs 09/21/18 20:00 09/22/18 00:00 09/22/18 04:00 Temperature 98.1 F 98.1 F 97.7 F Pulse Rate 71 58 L 58 L Respiratory Rate 16 16 15 Blood Pressure 190/100 H 168/75 H 190/75 H Pulse Oximetry 95 92 L 90 L 09/22/18 04:30 09/22/18 08:00 09/22/18 14:20 Temperature 97.5 F L 97.9 F Pulse Rate 61 61 Respiratory Rate 16 18 Blood Pressure 165/71 H 149/70 H 145/77 H Pulse Oximetry 97 93 L Intake & Output 09/21/18 09/22/18 09/22/18 18:59 06:59 18:59 Intake Total 720 / 720 480 / 480 Balance 720 / 720 480 / 480 Weight 91.9 kg Intake: Oral 720 / 720 480 / 480 Other: # Voids 6 Date of Last Bowel Movement 09/19/18 # Bowel Movements 1 Narrative: GENERAL: Well-developed, well-nourished, female in no apparent distress SKIN: Warm and dry. HEAD: Atraumatic. Normocephalic. EYES: Pupils equal and round. No scleral icterus. No injection or drainage. ENT: No nasal bleeding or discharge. Mucous membranes pink and moist. NECK: Trachea midline. No JVD. CARDIOVASCULAR: Regular rate and rhythm. RESPIRATORY: No accessory muscle use. Occ wheeze heard. Breath sounds equal bilaterally. GASTROINTESTINAL: Abdomen obese soft, slight right upper quadrant tenderness , nondistended. Hepatic and splenic margins not palpable. MUSCULOSKELETAL: Extremities without clubbing, cyanosis, or edema. No obvious deformities. NEUROLOGICAL: Awake and alert. Motor grossly within normal limits. Normal speech. PSYCHIATRIC: Appropriate mood and affect; insight and judgment normal. Results - Labs CBC & Chem 7: 09/19/18 06:23 09/19/18 06:23 Microbiology 09/18/18 16:30 Blood - Peripheral Aerobic Blood Culture - Preliminary No growth in 4 days 09/18/18 16:30 Blood - Peripheral Anaerobic Blood Culture - Preliminary No growth in 4 days 09/18/18 16:25 Blood - Peripheral Aerobic Blood Culture - Preliminary No growth in 4 days 09/18/18 16:25 Blood - Peripheral Anaerobic Blood Culture - Preliminary No growth in 4 days Assessment and Plan - Assessment (1) COPD (chronic obstructive pulmonary disease) Code(s): J44.9 - Chronic obstructive pulmonary disease, unspecified Status: Acute (2) Mass of right lung Code(s): R91.8 - Other nonspecific abnormal finding of lung field Status: Acute (3) Acute cholecystitis Code(s): K81.0 - Acute cholecystitis Status: Acute - Plan 1. Albuterol nebs qid PRN 2. Will schedule biopsy of Right lung density on Sunday 3. PFT with bronchodilators 4. Continue antibiotics . 5. Cont Requip 1 mg TID 6. Symbicort 160/4.5 mcg, 2puffs BID
[2018-09-23] MEDS: metroNIDAZOLE 500 MG Tablet PO SCH ×2 (06:21→15:29)
[2018-09-23] MEDS: Isosorbide Mononitrate 60 MG ER 24HR Tablet (Imdur) PO SCH (06:21)
[2018-09-23] MEDS: Ciprofloxacin 500 MG Tablet PO SCH (08:56)
[2018-09-23] MEDS: Metoprolol Tartrate 25 MG Tablet PO SCH (08:58)
[2018-09-23] MEDS: Loratadine 10 MG Tablet PO SCH (08:58)
[2018-09-23] MEDS: Budesonide-Formoterol 160/4.5 MCG 6 GM Inhaler INH SCH (08:59)
--- NOTE | 2018-09-23 11:08 | P.PNIM ---
Subjective Interval history: Follow-up for acute cholecystitis, pulmonary mass, hypertension, hyperlipidemia, [place], CAD and tobacco dependence. Patient seen and examined, laying in bed, complains of some anxiousness for the procedure. Patient denies any history of anxiety or depression, not taking any anxiety or depression medications at home. Patient stated pain is getting better, controlled with pain medication. Patient denies any nausea or vomiting, denies any diarrhea or constipation. Patient denies any fever or chills. Nurse reported no acute issues overnight Physical Exam Vital signs: Last Vital Signs Temp 97.4 F L 09/23/18 08:00 Pulse 65 09/23/18 08:00 Resp 18 09/23/18 08:00 BP 194/84 H 09/23/18 08:00 Pulse Ox 96 09/23/18 08:00 Intake & Output 09/21/18 09/22/18 09/23/18 09/24/18 06:59 06:59 06:59 06:59 Intake Total 880 / 880 1200 / 1200 Balance 880 / 880 1200 / 1200 Weight 91.9 kg 91.5 kg Narrative: GENERAL: Well-developed, well-nourished, female in no apparent distress SKIN: Warm and dry. HEAD: Atraumatic. Normocephalic. EYES: Pupils equal and round. No scleral icterus. No injection or drainage. ENT: No nasal bleeding or discharge. Mucous membranes pink and moist. NECK: Trachea midline. No JVD. CARDIOVASCULAR: Regular rate and rhythm. RESPIRATORY: No accessory muscle use. Occ wheeze heard. Breath sounds equal bilaterally. GASTROINTESTINAL: Abdomen obese soft, slight right upper quadrant tenderness , nondistended. Hepatic and splenic margins not palpable. MUSCULOSKELETAL: Extremities without clubbing, cyanosis, or edema. No obvious deformities. NEUROLOGICAL: Awake and alert. Motor grossly within normal limits. Generalized weakness, moving all 4 extremities normal speech. PSYCHIATRIC: Appropriate mood and affect; insight and judgment normal. Results Labs CBC & Chem 7: 09/19/18 06:23 09/19/18 06:23 Labs: Microbiology 09/18/18 16:30 Blood - Peripheral Aerobic Blood Culture - Final No growth in 5 days 09/18/18 16:30 Blood - Peripheral Anaerobic Blood Culture - Final No growth in 5 days 09/18/18 16:25 Blood - Peripheral Aerobic Blood Culture - Final No growth in 5 days 09/18/18 16:25 Blood - Peripheral Anaerobic Blood Culture - Final No growth in 5 days Assessment and Plan (1) COPD (chronic obstructive pulmonary disease): Code(s): J44.9 - Chronic obstructive pulmonary disease, unspecified Status: Acute (2) Mass of right lung: Code(s): R91.8 - Other nonspecific abnormal finding of lung field Status: Acute (3) Acute cholecystitis: Code(s): K81.0 - Acute cholecystitis Status: Acute Plan This is a 72 years old obese female with acute cholecystitis, and history of hypertension, CAD, hyperlipidemia, and tobacco abuse. Acute cholecystitis Abdominal pain Nausea, likely related to pain/cholecystitis -Outside CT abdomen/pelvis noted -General surgeon consulted, appreciate recommendation: Nonoperative management of acute cholecystitis. Continue IV antibiotics advance diet to full liquid if tolerating may discharge tomorrow with 1 week Cipro and Flagyl. Follow-up with general surgeon in first week of October. -Hold Plavix -Ultrasound of the gallbladder ordered; follow results -Chest x-ray: 2.1 cm mass in the right hilar region. Further evaluation with contrast-enhanced chest CT is recommended -Chest CT : Right upper and right lower lobe pulmonary masses as described. Prominent paratracheal and precarinal mediastinal lymph nodes ranging in size up to 2.2 cm.3. Mild posterior pleural based airspace disease in both lower lobes -Continue Zofran PRN for nausea, -pt encouraged to take pain medication for pain control -Patient pain better controlled when taking pain medication. -advance diet as tolerated, patient tolerating nonfat diet, no nausea no vomiting today -NPO after midnight Hypertension -Blood pressure elevated, likely related to pain and anxiety -Continue Imdur -Increase metoprolol dose with hold parameters -add clonidine as needed for SBP greater than 160 or DBP greater than 90 -Start on lisinopril low dose, for persistent elevated blood pressure -Monitor blood pressure, adjust medication as necessary CAD -Prior history of [place] and coronary stents -No chest pain no shortness of breath -Hold Plavix and resume BB, continue Lipitor Hyperlipidemia -Resume atorvastatin -Monitor lipids and LFT Pulmonary Mass Tobacco abuse -Tobacco counseling cessation provided -Patient declined nicotine patch at this time -Chest x-ray: 2.1 cm mass in the right hilar region. Further evaluation with contrast-enhanced chest CT is recommended -Chest CT : Right upper and right lower lobe pulmonary masses as described. Prominent paratracheal and precarinal mediastinal lymph nodes ranging in size up to 2.2 cm.3. Mild posterior pleural based airspace disease in both lower lobes -Pulmonology consulted, appreciate recommendation: plan for outpatient follow- up for possible biopsy -Try to schedule lung biopsy as an outpatient however after communication with radiology and with social sciences lecturer and unable to schedule patient as an outpatient due to radiology scheduling. -Patient scheduled for inpatient lung mass needle biopsy today, n.p.o. after midnight. -Give one-time dose of Ativan today for anxiety related to procedure DVT prophylaxis: Bilateral SCDs Progress Note: Quality VTE Deep Vein Thrombosis/Pulmonary Embolism Present on Admission: No _ (1) COPD (chronic obstructive pulmonary disease) Qualifiers: COPD type: Chronic bronchitis type: Emphysema type:
[2018-09-23] MEDS ORDERED: Lisinopril 10 MG Tablet PO SCH (11:15)
[2018-09-23] MEDS ORDERED: fentaNYL Citrate Inj 250 MCG/5 ML Ampul ONE (11:55)
--- NOTE | 2018-09-23 13:11 | CT ---
EXAM DATE: 09/23/2018 12:59 PM EST AGE/SEX: 72 years / Female INDICATIONS: Right lung mass CLINICAL DATA: This is the patient's initial encounter. Patient reports that signs and symptoms have been present for 1 day and indicates a pain score of 0/10. MEDICAL/SURGICAL HISTORY: Hypertension. Coronary artery stent. Hysterectomy. [place] [facility] [place]. . BIOPSY SITE: Right lung MEDICATION(S): 2.5 mg midazolam (Versed) IV 125 mcg fentanyl (Sublimaze) IV DEVICE(S): 17 gauge Introducer 18 gauge BARD biopsy needle Two . . PROCEDURE: CT guided Right lung biopsy Prior to the procedure informed consent was obtained. Any appropriate prior imaging studies were rev iewed. Using automated exposure control and adjustment of the mA and/or kV according to patient size , radiation dose was kept as low as reasonably achievable to obtain optimal diagnostic quality images . DICOM format image data is available electronically for review and comparison. The site was prepped in a sterile fashion. Full sterile technique was used, including cap, mask, consuelo rile gloves and gown and a large sterile sheet. Hand hygiene and 2% chlorhexidine and/or betadine/al cohol prep was utilized per protocol for cutaneous antisepsis. The skin and subcutaneous tissues wer e infiltrated with local anesthetic solution. With CT guidance the previously identified target was localized. Biopsy was performed using the presc ribed needle as above. Adequate hemostasis was obtained with compression at the puncture site. Follow-up CT scan reveals no pneumothorax. Conscious sedation was performed with the prescribed dosages and duration as above in the presence of an independent trained radiology nurse to assist in the monitoring of the patient. EKG and oximetry remained stable throughout the procedure. The patient tolerated the procedure well and there were no complications. The patient was sent to Radiology Outpatient Unit in stable condition. FINDINGS: 17-gauge, 5 cm blunt guide was advanced to the edge of the lesion. A series of 2 core biopsies were o btained from the mass lesion in the posterior right lower lobe. CONCLUSION: 1. Uncomplicated CT guided biopsy. Electronically signed by: Ferny Wylie MD Board Certified Radiologist 09/23/2018 1:09 PM EST
--- NOTE | 2018-09-23 13:17 | P.RAD ---
Post Procedure Progress Note - Pre Procedure Diagnosis (1) Mass of right lung - Post Procedure Diagnosis (1) Mass of right lung - Procedure Information Procedure Date: 09/23/18 Supervising Radiologist: Ferny Wylie MD Estimated blood loss (mL): 2 Anesthesia: Local, Analgesia, Conscious Sedation - Plan of Activity Patient to Unit: [facility] Patient Condition: Good See PACS Report for procedural detail/treatment. Biopsy CT right Lung Specimen: Core Biopsy (18 gauge x 2)
--- NOTE | 2018-09-23 13:49 | XR ---
EXAM DATE: 09/23/2018 1:33 PM EST AGE/SEX: 72 years / Female INDICATIONS: Evaluate for pneumothorax, post lung biopsy. CLINICAL DATA: This is the patient's initial encounter. Patient reports that signs and symptoms have been present for 1 day and indicates a pain score of 0/10. MEDICAL/SURGICAL HISTORY: Hypertension. Coronary artery stent. Hysterectomy. COMPARISON: [facility] [place] 1[place] SINGLE AP, 09/18/2018. . FINDINGS: There is no pneumothorax following lung biopsy. Cardiac silhouette is prominent. CONCLUSION: No pneumothorax following lung biopsy Electronically signed by: Gustavo Gao MD Board Certified Radiologist 09/23/2018 1:48 PM EST
--- NOTE | 2018-09-23 16:50 | P.DS ---
DS: Providers Date of admission: 09/18/18 16:17 Primary care physician: No Primary Care Physician Consults: 09/18/18 17:34 Consult to General Surgery Routine Consulting Provider: Lc Crockett Preferred Gusset Maker:: Lc Crockett Reason for Consultation: 72-year-old with abnormal abdomen/pelvis CT scan with finding of acute cholecystitis, please evaluate and advise for therapy Notified:: Service Date Notified:: 09/18/18 Time Notified:: 17:38 Ordering Provider: JAYJAY 09/19/18 17:51 Consult to Pulmonology Routine Consulting Provider: Vikram Jasmine V Reason for Consultation: Chest x-ray: 2.1 cm mass in the right hilar region. Further evaluation with contrast-enhanced chest CT is recommended -Chest CT : Right upper and right lower lobe pulmonary masses as described. Prominent paratracheal and precarinal mediastinal lymph nodes ranging in size up to 2.2 cm.3. Mild posterior pleural based airspace disease in both lower lobes Notified:: Office Spoke with:: FALGUNI Date Notified:: 09/19/18 Time Notified:: 17:59 Ordering Provider: ANTONY Brief History from admission: 72-year-old female with past medical history of hypertension, hyperlipidemia, AL , CAD and a half a pack per day tobacco use was sent to the ED after abnormal abdominal CAT scan report of an acute cholecystitis. Patient states over the past 3 days she has been having significant right upper quadrant abdominal pain , which is rated of a 9 in intensity, for which she has initially gone to an urgent care center for evaluation September 18, 2018. She was called in today of the report of an acute cholecystitis and was advised to come to the ED. She denies any febrile episode however reported decreased appetite without any significant nausea. She has no other issues. DS: Diagnosis Discharge Diagnosis (1) COPD (chronic obstructive pulmonary disease): Status: Acute (2) Mass of right lung: Status: Acute (3) Acute cholecystitis: Status: Acute DS: Summary This is a 72 years old obese female with acute cholecystitis, and history of hypertension, CAD, hyperlipidemia, and tobacco abuse. Chest was admitted and treated for Acute cholecystitis, Abdominal pain, General surgeon consulted, recommended Nonoperative management of acute cholecystitis due to patient's long-term use of Plavix for CAD, history of AL and coronary stents. Patient will be discharge with 1 week Cipro and Flagyl. Follow-up with general surgeon in first week of October. Continue to Hold Plavix for plan for surgery. On the course of hospitalization patient found in the Chest x-ray: 2.1 cm mass in the right hilar region. Further evaluation with contrast-enhanced chest CT is recommended. Chest CT : Right upper and right lower lobe pulmonary masses as described. Prominent paratracheal and precarinal mediastinal lymph nodes ranging in size up to 2.2 cm.3. Mild posterior pleural based airspace disease in both lower lobes. Pulmonology was consulted and recommended for a lung mass needle biopsy which is done today. Chest x-ray post needle biopsy shows no pneumothorax, good cleared with pulmonology for discharge. Time Spent with Patient Total time spent providing and/or coordinating discharge services: Quality: VTE Deep Vein Thrombosis/Pulmonary Embolism Present on Admission: No Exam Narrative Exam Narrative: GENERAL: Well-developed, well-nourished, female in no apparent distress SKIN: Warm and dry. HEAD: Atraumatic. Normocephalic. EYES: Pupils equal and round. No scleral icterus. No injection or drainage. ENT: No nasal bleeding or discharge. Mucous membranes pink and moist. NECK: Trachea midline. No JVD. CARDIOVASCULAR: Regular rate and rhythm. RESPIRATORY: No accessory muscle use. Occ wheeze heard. Breath sounds equal bilaterally. GASTROINTESTINAL: Abdomen obese soft, slight right upper quadrant tenderness , nondistended. Hepatic and splenic margins not palpable. MUSCULOSKELETAL: Extremities without clubbing, cyanosis, or edema. No obvious deformities. NEUROLOGICAL: Awake and alert. Motor grossly within normal limits. Generalized weakness, moving all 4 extremities normal speech. PSYCHIATRIC: Appropriate mood and affect; insight and judgment normal. Results Impressions ITS Impressions Chest CT 09/19/18 00:00 CONCLUSION: 1. Right upper and right lower lobe pulmonary masses as described. 2. Prominent paratracheal and precarinal mediastinal lymph nodes ranging in size up to 2.2 cm. 3. Mild posterior pleural based airspace disease in both lower lobes. Gallbladder Ultrasound 09/19/18 00:00 CONCLUSION: Distended gallbladder with thickened gallbladder wall. Gallstones are not seen. There is nonshadowing echogenic material within the gallbladder thought to be related to sludge. There does appear to be inflammatory change seen around the gallbladder on the prior CT examination. Cholecystitis needs to be suspected based on the CT. However, gallstones are not seen and the technologist reports a negative sonographic Sanon's sign although its is uncertain if the patient has been treated with any pain medication. These findings likely correlate with patient's clinical history. If necessary, one could consider a HIDA scan. Lung Biopsy CT 09/23/18 00:00 CONCLUSION: 1. Uncomplicated CT guided biopsy. Chest X-Ray 09/23/18 13:15 CONCLUSION: No pneumothorax following lung biopsy Discharge Plan Discharge Disposition Patient Disposition: Discharge Home Discharge Order Discharge Orders: Discharge Order (Routine); Ordered 09/21/18 Ordered By: Sparkle Richards [facility] Clear for Discharge (Routine); Ordered 09/21/18 Ordered By: Sparkle Richards [facility] Clear for Discharge (Routine); Ordered 09/23/18 Ordered By: Vikram Jasmine Discharge Details Anticipated Discharge Date: 09/21/18 Discharge Comment: d/c if tolerating low fat diet and cleared with General surgeon and Pulmunology f/u with Pulmunology in 1 week outpatient Lung needle Biopsy of Lung mass on Sunday Physicians Team ED Provider: Doris Eng ED Midlevel Provider: Rudy Keith Primary Care Provider: Primary Care Vinicius,Judi Attending Provider: Odilia Rich Other Providers: Lc Crockett John V Rxs /Orders / Referrals /Forms Prescriptions: New metoprolol tartrate 25 mg Tablet 25 mg PO BID Qty: 60 RF: 0 ciprofloxacin HCl [Cipro] 500 mg tablet 500 mg PO Q12H Qty: 14 RF: 0 metronidazole [Flagyl] 500 mg tablet 500 mg PO Q8H 7 Days Qty: 21 RF: 0 Continue atorvastatin 10 mg Tablet 10 mg PO DAILY RF: 0 isosorbide mononitrate 60 mg Tablet Extended Release 24 Hr 60 mg PO DAILY RF: 0 omeprazole-sodium bicarbonate [Zegerid OTC] 20-1.1 mg-gram Capsule 1 cap PO DAILY RF: 0 ropinirole 1 mg Tablet 1 mg PO TID RF: 0 hydrocodone-acetaminophen 7.5-325 mg Tablet 1 tab PO Q6H PRN (Reason: Pain) RF: 0 Discontinued clopidogrel [Plavix] 75 mg Tablet 75 mg PO DAILY RF: 0 No Action metoprolol tartrate 25 mg Tablet 25 mg PO DAILY RF: 0 Referrals: [facility], [Non-Staff] - See Instructions (Follow up with Primary care - Dr Viraj Paige) Vikram Jasmine MD [Physician] - See Instructions (Follow up in 10 days Your appointment has been scheduled for [] at [] If you cannot make this appointment, please call the office to reschedule ) Lc Crockett MD [GENERAL SURGERY] - See Instructions (Follow-up in 6-8 weeks) Primary Care Judi Colvin [Primary Care Provider] - See Instructions Discharge Instructions Patient Printed Instructions: Ciprofloxacin (By mouth), Metoprolol (By mouth), Metronidazole (By mouth) Status ED Status: Left Department
== END 2018-09-23 19:17 | disposition home or self-care (01) ==
LOC: NEPE 13:53 → NEDA 16:17 → N05 19:15
PROVIDERS: ADMIT Hospitalist; ATTEND Hospitalist
DX: Z82.49 Family history of ischemic heart disease and other diseases of the circulatory system; F17.210 Nicotine dependence, cigarettes, uncomplicated; Z95.5 Presence of coronary angioplasty implant and graft; I25.2 Old myocardial infarction; R91.8 Other nonspecific abnormal finding of lung field; I10 Essential (primary) hypertension; I25.10 Atherosclerotic heart disease of native coronary artery without angina pectoris; J44.1 Chronic obstructive pulmonary disease with (acute) exacerbation; K81.0 Acute cholecystitis; E78.5 Hyperlipidemia, unspecified